=== PATIENT | female | born 1960 | race African-American/Black ===

== ENCOUNTER 2017-04-24 09:45 | Emergency (ER) | payer OTHER ==
[2017-04-24 10:03] VITALS: BP 138/72; PULSE 58; TEMP 97.4; BMI 28.5
[2017-04-24] MEDS ORDERED: KETOROLAC TROMETHAMINE 60 MG/2 ML VIAL IM ONE (10:10)
[2017-04-24] MEDS ORDERED: KETOROLAC TROMETHAMINE 60 MG/2 ML VIAL ONE (10:15)
[2017-04-24 10:32] LABS: URINE APPEARANCE CLOUDY; URINE BILIRUBIN NEGATIVE (NEGATIVE); URINE BLOOD 1+ (NEGATIVE); URINE COLOR LTYELLOW; URINE GLUCOSE (UA) NEGATIVE (NEGATIVE); URINE KETONE NEGATIVE (NEGATIVE); URINE LEUK ESTERASE NEGATIVE (NEGATIVE); URINE NITRITE NEGATIVE (NEGATIVE); URINE PROTEIN NEGATIVE (NEGATIVE); URINE UROBILINOGEN NEGATIVE mg/dL (0.2-1.0)
[2017-04-24 10:44] LABS: URINE BACTERIA MODERATE /hpf (NONE SEEN); URINE MUCUS RARE
--- NOTE | 2017-04-24 11:13 | PDOC ---
History of Present Illness - General Chief Complaint: Pain, Acute Stated Complaint: ABD PAIN Time Seen by Provider: 04/24/17 10:09 History Source: Patient Exam Limitations: No Limitations - History of Present Illness Initial Comments: 04/24/17 11:03 The patient is a 56F with a PMH of fibroymalgia, depression, who presents with acute onset R flank pain. The pain started at 0400 this morning and has worsened until the patient's presentation. She has vomited and feels slightly nauseous. She denies any other pain including abdominal pain, CP, hematuria. She denies any hx of kidney stones. She cannot provide more history 2/2 pain. Past History - Past Medical History Allergies/Adverse Reactions: Allergies Allergy/AdvReac Type Severity Reaction Status Date / Time Iodine and Iodide Containing Allergy Verified 04/24/17 10:03 Produc Home Medications: Ambulatory Orders Oxycodone HCl/Acetaminophen [Percocet 5-325 mg Tablet] 1 tab PO Q6H PRN #12 tablet MDD 4 tabs 04/24/17 COPD: No - Suicide/Smoking/Psychosocial Hx Smoking History: Never smoked Have you smoked in the past 12 months: No Information on smoking cessation initiated: No Hx Alcohol Use: No Drug/Substance Use Hx: No Substance Use Type: None Review of Systems - Review of Systems Able to Perform ROS?: Yes Comments:: 04/24/17 13:08 GENERAL/CONSTITUTIONAL: No fever or chills. No weakness. HEAD, EYES, EARS, NOSE AND THROAT: No change in vision. No ear pain or discharge. No sore throat. CARDIOVASCULAR: No chest pain, palpitations, or lightheadedness. RESPIRATORY: No cough, wheezing, shortness of breath, or hemoptysis. GASTROINTESTINAL: Positive for nausea and vomiting. No diarrhea, constipation, or abdominal pain. GENITOURINARY: Positive for R flank pain. No dysuria, frequency, hematuria, or change in urination. MUSCULOSKELETAL: No joint or muscle swelling or pain. No neck or back pain. SKIN: No rash or lesions. NEUROLOGIC: No headache, numbness, tingling, weakness, loss of consciousness, or change in strength/sensation. ENDOCRINE: No increased thirst. No abnormal weight change. HEMATOLOGIC/LYMPHATIC: No anemia, easy bleeding, or history of blood clots. ALLERGIC/IMMUNOLOGIC: No hives or skin allergy. Is the patient limited [place] proficient: No *Physical Exam - Vital Signs Last Vital Signs Temp Pulse Resp BP Pulse Ox 97.4 F L 58 L 20 138/72 99 04/24/17 10:02 04/24/17 10:02 04/24/17 10:02 04/24/17 10:02 04/24/17 10:02 - Physical Exam Comments: 04/24/17 13:09 GENERAL: Well developed, well nourished. Writhing, in moderate distress. Awake and alert. HEENT: Normocephalic, atraumatic. Hearing grossly normal. Moist mucous membranes. PERRLA, EOMI. No conjunctival pallor. Sclera are non-icteric. NECK: Supple. Full ROM. No JVD. CARDIOVASCULAR: Regular rate and rhythm. No murmurs, rubs, or gallops. PULMONARY: No evidence of respiratory distress. Lungs clear to auscultation bilaterally. No wheezing, rales or rhonchi. ABDOMINAL: Soft. Non-tender. Non-distended. No rebound or guarding. GENITOURINARY: No CVA tenderness bilaterally. MUSCULOSKELETAL: Normal range of motion at all joints. No bony deformities or tenderness. EXTREMITIES: No cyanosis. No clubbing. No edema. No calf tenderness. SKIN: Warm and dry. Normal capillary refill. No rashes. No jaundice. NEUROLOGICAL: Alert, awake, appropriate. Cranial nerves 2-12 intact. Normal speech. Gait is normal without ataxia. PSYCHIATRIC: Cooperative. Good eye contact. Appropriate mood and affect. ED Treatment Course - LABORATORY CBC & Chemistry Diagram: 04/24/17 11:59 04/24/17 11:59 - ADDITIONAL ORDERS Additional order review: Laboratory Results 04/24/17 10:14 Urine Color Ltyellow Urine Appearance Cloudy Urine pH 7.0 Ur Specific [place] 1.015 Urine Protein Negative Urine Glucose (UA) Negative Urine Ketones Negative Urine Blood 1+ H Urine Nitrite Negative Urine Bilirubin Negative Urine Urobilinogen Negative Ur Leukocyte Esterase Negative Urine WBC (Auto) None Urine RBC (Auto) 25 Urine Bacteria Moderate Urine Mucus Rare - RADIOLOGY Radiology Studies Ordered: Category Date Time Status ABDOMEN & PELVIS CT W/O CONTR [CT] Stat CT Scan 04/24/17 10:34 Taken - Medications Given in the ED: ED Medications Discontinued Medications Generic Name Dose Route Start Last Admin Trade Name Freq PRN Reason Stop Dose Admin Ketorolac Tromethamine 60 mg 04/24/17 10:10 04/24/17 10:05 Toradol Injection - IM 04/24/17 10:11 60 mg ONCE ONE Administration Medical Decision Making - Medical Decision Making 04/24/17 11:37 The patient is a 56F who presented with acute onset R flank pain. Toradol controlled the pain. CT showed 4mm stone. Will refer to urology. Will prescribe naproxen and percocet. *DC/Admit/Observation/Transfer Diagnosis at time of Disposition: Nephrolithiasis - Discharge Dispostion Disposition: HOME Condition at time of disposition: Stable Admit: No - Prescriptions Prescriptions: Oxycodone HCl/Acetaminophen [Percocet 5-325 mg Tablet] 1 tab PO Q6H PRN #12 tablet MDD 4 tabs PRN Reason: Pain - Referrals Referrals: Manuel Sethi MD [Staff Physician] - - Patient Instructions Printed Discharge Instructions: Kidney Stones -- Adult Additional Instructions: Please return to the ER if symptoms persist, worsen, or new symptoms arise. Please follow up with your primary care physician in 2-3 days. Please follow up with Dr. Sethi, urology, in 5-7 days. Please return to the ER if you are still experiencing pain in 5-7 days. Try to watch your urine to see if you passed a stone. If you did, save it for your appointment with Dr. Sethi. Please return to the ER if you have any signs or symptoms of chest pain, shortness of breath, uncontrollable fever, chills, nausea, vomiting, numbness, tingling, or weakness in any part of your body, changes in vision, or slurred speech. - Post Discharge Activity
[2017-04-24] MEDS ORDERED: SODIUM CHLORIDE 1,000 ML IV STA (11:44)
--- NOTE | 2017-04-24 11:50 | PDOC ---
Attending Attestation - Resident Resident Name: Gabriel Agustin - ED Attending Attestation I have performed the following: I have examined & evaluated the patient, The case was reviewed & discussed with the resident, I agree w/resident's findings & plan, Exceptions are as noted - HPI HPI: 04/24/17 11:46 "The patient is a 56 year old female with a significant PMH of fibromyalgia who presents to the emergency department with flank pain with associated nausea and vomiting that began at approximately 4AM this morning. The patient states the flank pain is described as sharp, sudden onset, and localized on the right radiating anteriorly. The patient is complaining of multiple episodes of non- bloody, non-bilious vomit today. The patient denies any history of kidney stones. The patient denies chest pain, shortness of breath, headache and dizziness. Denies fever, chills, diarrhea and constipation. Denies dysuria, frequency, urgency and hematuria. Allergies: NKA Past surgical history: None reported Social history: No reported alcohol, cigarette or drug use. " - Physicial Exam PE: 04/24/17 11:47 "GENERAL: Awake, alert, and fully oriented, in no acute distress HEAD: No signs of trauma EYES: PERRLA, EOMI, sclera anicteric, conjunctiva clear ENT: Auricles normal inspection, hearing grossly normal, nares patent, oropharynx clear without exudates. Moist mucosa NECK: Nontender, no stepoffs, Normal ROM, supple, no lymphadenopathy, JVD, or masses LUNGS: Breath sounds equal, clear to auscultation bilaterally. No wheezes, and no crackles HEART: Regular rate and rhythm, normal S1 and S2, no murmurs, rubs or gallops ABDOMEN: Soft, nontender, normoactive bowel sounds. No guarding, no rebound. No masses EXTREMITIES: Normal range of motion, no edema. No clubbing or cyanosis. No cords, erythema, or tenderness NEUROLOGICAL: Cranial nerves II through XII intact. 5/5 strength and sensation in all extremities, Normal speech, normal gait SKIN: Warm, Dry, normal turgor, no rashes or lesions noted. " - Medical Decision Making 04/24/17 11:47 56 F with R flank radiating to groin. - CT shows 4mm stone - UA with blood, no evidence of infection - Will check CBC/CMP - Pain at this time well controlled with toradol
[2017-04-24 12:11] LABS: BASO % 0.1 % (0-2.0); EOS % 0.2 % (0-4.5); HEMATOCRIT 41.4 % (32.4-45.2); HEMOGLOBIN 13.5 GM/dL (10.7-15.3); LYMPH % 5.5 % (8-40); MCH 30.6 pg (25.7-33.7); MCHC 32.6 g/dl (32.0-36.0); MEAN CELL VOLUME 93.8 fl (80-96); MEAN PLT VOLUME 9.1 fl (7.5-11.1); MONO % 3.9 % (3.8-10.2); NEUT % 90.3 % (42.8-82.8); PLATELET COUNT 170 K/MM3 (134-434); RBC 4.41 M/mm3 (3.60-5.2); RDW 12.8 % (11.6-15.6); WHITE BLOOD COUNT 9.4 K/mm3 (4.0-10.0)
[2017-04-24 12:28] LABS: ALBUMIN 4.2 g/dl (3.4-5.0); ANION GAP 7 (8-16); BILIRUBIN,TOTAL 0.2 mg/dL (0.2-1.0); BLOOD UREA NITROGEN 10 mg/dL (7-18); CALCIUM 9.3 mg/dL (8.5-10.1); CHLORIDE 105 mmol/L (98-107); CO2 31 mmol/L (21-32); CREATININE 0.9 mg/dL (0.55-1.02); GLUCOSE,RANDOM 108 mg/dL (74-106); SGPT/ALT 27 U/L (12-78); SODIUM 143 mmol/L (136-145); TOT PROT 7.5 g/dl (6.4-8.2)
[2017-04-24 12:29] LABS: ALK PHOS 65 U/L (45-117)
[2017-04-24 12:31] LABS: POTASSIUM 4.7 mmol/L (3.5-5.1); SGOT/AST 20 U/L (15-37)
== END 2017-04-24 13:21 | disposition home or self-care (01) ==
LOC: JER 09:45
PROC: 3E0337Z Introduction of Electrolytic and Water Balance Substance into Peripheral Vein, Percutaneous Approach (ICD-10-PCS; principal; 2017-04-24)
PROC: 3E0233Z Introduction of Anti-inflammatory into Muscle, Percutaneous Approach (ICD-10-PCS; 2017-04-24)
DX: N13.2 Hydronephrosis with renal and ureteral calculous obstruction (principal)
CPT/HCPCS: 36415; 74176-TC; 80053; 81003; 81015; 85025; 87086; 99282-25

== ENCOUNTER 2019-11-22 18:33 | Inpatient (IN) | payer OTHER ==
[2019-11-22] MEDS ORDERED: ACETAMINOPHEN 1000 MG/100 ML VIAL (NON FORMULARY) IVPB ONE (20:13)
[2019-11-22] MEDS ORDERED: morphine CARPU-JECT 4 MG/1 ML DISP.SYRIN IVPUSH ONE (20:13)
--- NOTE | 2019-11-22 20:24 | PDOC ---
History of Present Illness - General Chief Complaint: Pain, Acute Stated Complaint: PAIN Time Seen by Provider: 11/22/19 19:43 - History of Present Illness Initial Comments: 11/22/19 20:16 59yo female with PMH of cervical spine stenosis and arthropathy presents with acute on chronic neck pain and difficulty ambulating. Reports increased pain for the past month. Saw a neurosurgeon who told her to get an MRI and see a neurologist first, which she is scheduled for this Sunday. She was in so much pain that she could not wait. Complains of sharp burning neck pain radiating down right arm with right arm weakness. Not relieved by ibuprofen, which she last took 800mg of two hours ago. Also reports knee pain and difficulty with ambulation. Reports falling on her butt two days prior without headstrike or LOC. Denies urinary/fecal incontinence/retention, f/c, saddle anesthesia. Had a recent knee MRI which showed OA but not acute process. PMH: as above, HLD PSH: hysterectomy Meds: statin, ibuprofen, gabapentin Allergies: iodine ROS GENERAL/CONSTITUTIONAL: No fever or chills. HEAD, EYES, EARS, NOSE AND THROAT: No change in vision. No ear pain or discharge. No sore throat. CARDIOVASCULAR: No chest pain or shortness of breath RESPIRATORY: No cough, wheezing, or hemoptysis. GASTROINTESTINAL: No nausea, vomiting, diarrhea or constipation. GENITOURINARY: No dysuria, frequency, or change in urination. MUSCULOSKELETAL: neck and knee pain. SKIN: No rash NEUROLOGIC: No headache, vertigo, loss of consciousness. difficulty walking ENDOCRINE: No increased thirst. No abnormal weight change HEMATOLOGIC/LYMPHATIC: No anemia, easy bleeding, or history of blood clots. ALLERGIC/IMMUNOLOGIC: No hives or skin allergy. PE GENERAL: Awake, alert, and fully oriented, in pain HEAD: No signs of trauma, normocephalic, atraumatic EYES: PERRLA, EOMI, sclera anicteric, conjunctiva clear ENT: Auricles normal inspection, hearing grossly normal, nares patent, oropharynx clear without exudates. Moist mucosa NECK: Normal ROM, supple, no lymphadenopathy, JVD, or masses LUNGS: No distress, speaks full sentences, clear to auscultation bilaterally HEART: Regular rate and rhythm, normal S1 and S2, no murmurs, rubs or gallops, peripheral pulses normal and equal bilaterally. ABDOMEN: Soft, nontender, normoactive bowel sounds. No guarding, no rebound. No masses EXTREMITIES : Normal inspection, no edema. No clubbing or cyanosis. NEUROLOGICAL: 3/5 strength in right arm and left leg. ROM in right arm limited by pain. SKIN: Warm, Dry, normal turgor, no rashes or lesions noted BACK: paraspinal and midline tenderness in cervical and lumbar spine MDM: 59yo female with PMH of cervical spine stenosis and arthropathy presents with acute on chronic neck pain and difficulty ambulating. Tender on c-spine and lumbar spine with reduced strength in right arm and left leg, even after pain medication. DDx includes spinal stenosis, arthropathy, spinal fracture. -CT cervical and lumbar spine -toradol, percocet, lidoderm patch, gabapentin 11/22/19 23:25 CT c-spine FINDINGS: There is no prevertebral soft tissue swelling. There is no evidence of acute fracture or subluxation. There are no destructive lesions. There is multilevel degenerative change with small anterior and posterior osteophytes. There is mild disc space loss at C3-C4 moderate loss at C4-C5 and moderate significant loss at C5-C6. There is calcification of the posterior longitudinal ligament at C5-C6. There is multilevel uncal hypertrophy. There is moderate right neural foramina narrowing at C2-C3, mild narrowing on the right at C3-C4 moderate on the left. There is significant bilateral neural foramina narrowing at C4-C5 C5-C6 and to a mild extent on the right at C7-T1. Straightening of the cervical spine maybe secondary to muscle spasm. IMPRESSION: No evidence of acute fracture or subluxation.Straightening of the cervical spine maybe secondary to muscle spasm.If there are focal radicular findings, MRI would be recommended. CT lumbar spine FINDINGS: There is no evidence of lumbar spine fracture or subluxation. No destructive lesions are seen. The lumbar vertebral bodies are well aligned. There is mild degenerative change with small anterior osteophytes. There is mild to moderate disc space loss at L2-L3 and at L3-L4. There is vacuum disc at L3-L4. Mild disc bulge noted at L3-L4. IMPRESSION: No evidence of lumbar spine acute fracture or subluxation.If there are focal radicular findings, MRI would be recommended --- Pain improved with medication. There are radicular findings in the right arm, so will admit for MRI 11/23/19 02:26 Past History - Medical History Allergies/Adverse Reactions: Allergies Allergy/AdvReac Type Severity Reaction Status Date / Time Iodine and Iodide Containing Allergy Verified 11/22/19 18:41 Produc Home Medications: Ambulatory Orders Oxycodone HCl/Acetaminophen [Percocet 5-325 mg Tablet] 1 tab PO Q6H PRN #12 tablet MDD 4 tabs 04/24/17 COPD: No - Psycho-Social/Smoking History Smoking History: Never smoked Have you smoked in the past 12 months: No - Substance Abuse Hx (Audit-C & DAST Scrn) How often the patient has a drink containing alcohol: Never Score: In Men: 4 or > Positive; In Women: 3 or > Positive: 0 Screen Result (Pos requires Nsg. Audit-10AR): Negative In the last yr the pt used illegal drug/Rx for NonMed reason: No Score: Yes response is considered Positive: 0 Screen Result (Positive result requires Nsg. DAST-10): Negative *Physical Exam - Vital Signs Last Vital Signs Temp Pulse Resp BP Pulse Ox 98.6 F 66 18 110/44 L 100 11/22/19 18:41 11/22/19 18:41 11/22/19 18:41 11/22/19 18:41 11/22/19 18:41 ED Treatment Course - LABORATORY CBC & Chemistry Diagram: 11/23/19 00:50 11/23/19 00:50 - RADIOLOGY Radiology Studies Ordered: Category Date Time Status CERVICAL SPINE CT W/O CONTR [CT] Stat CT Scan 11/22/19 20:[address] W/O CONTRAST [CT] Stat CT Scan 11/22/19 20:[address] W/O CONTRAST [CT] Stat CT Scan 11/22/19 20:14 Ordered Discharge - Discharge Information Problems reviewed: Yes Clinical Impression/Diagnosis: Cervical stenosis of spinal canal - Admission Yes - Follow up/Referral - Patient Discharge Instructions - Post Discharge Activity
[2019-11-22] MEDS ORDERED: GABAPENTIN 100 MG CAPSULE PO ONE (20:25)
[2019-11-22] MEDS ORDERED: KETOROLAC TROMETHAMINE 30 MG/1 ML VIAL IVPUSH ONE (20:25)
[2019-11-22] MEDS ORDERED: LIDOCAINE 5% TOPICAL PATCH TP ONE (20:25)
[2019-11-22] MEDS ORDERED: SODIUM CHLORIDE 0.9% 500 ML INFUS.BAG IV ONE (20:25)
[2019-11-22] MEDS ORDERED: GABAPENTIN 300 MG CAPSULE PO ONE (20:31)
[2019-11-22] MEDS ORDERED: GABAPENTIN 100 MG CAPSULE ONE ×2 (20:38→21:11)
[2019-11-22] MEDS ORDERED: LIDOCAINE 5% TOPICAL PATCH ONE (20:38)
--- NOTE | 2019-11-22 22:12 | PDOC ---
Documentation entered by Diana Doss SCRIBE, acting as scribe for Margaret Ragsdale MD. Margaret Ragsdale MD: This documentation has been prepared by the scribeRomario Ana, SCRIBE, under my direction and personally reviewed by me in its entirety. I confirm that the documentation accurately reflects all work, treatment, procedures, and medical decision making performed by me. Attending Attestation - Resident Resident Name: LunaMario - ED Attending Attestation I have performed the following: I have examined & evaluated the patient, The case was reviewed & discussed with the resident, I agree w/resident's findings & plan, Exceptions are as noted - HPI HPI: 11/22/19 21:25 Patient is a year old female with a significant past medical history of cervical spine stenosis and arthropathy, who presents to the ED with neck pain, difficulty walking, and pain x1 month. Patient describes her neck pain as a "burning sensation" which radiates down to her right arm causing weakness and her knee pain causing her to have unsteady gait. Patient disclosed she attempted to self medicate with ibuprofen prior to ED arrival but experienced no relief. Patient reports falling 2 days ago. Patient said she is supposed to get an MRI and see neurologist next week. Patient denies: any head trauma, LOC, fever, chills, any urinary issues, any changes in bowel movements, or any other related symptoms. Allergies: see nurse's note - Physicial Exam PE: 11/22/19 22:09 General: awake, alert, fully oriented, in no acute distress, well developed, well nourished Head: normocephalic, atraumatic Eyes: PERRL, EOMI, anicteric sclera, conjunctiva clear ENT: Auricles normal inspection, hearing grossly normal, oropharynx clear without exudates, no nasal congestion, dry mucous membranes Neck: supple, normal ROM, no LAD, JVD or masses Lung: equal breath sounds b/l, CTA b/l, no crackles, wheezes; no distress, speaks full sentences Heart: RRR, normal S1, S2, no murmurs appreciated Abdomen: soft, non tender, normoactive bowel sounds, no guarding, rebound, masses Extremities: moderate tenderness over all extremities, DP/PT pulses 2+ and symmetric Neuro: Cranial nerves: Cranial nerves II through XII are intact; refelxes 2+ and symmetric Motor: The upper extremities are 5/5 in all muscle groups. The lower extremities are 5/5 in all muscle groups. No pronator drift. Sensation: Sensation is intact to light touch throughout. Gait: Normal Skin: warm, dry, no rashes or lesions noted, normal skin turgor Pt has muscle spasm and back pain; she complains of pain running down bilateral arms 11/22/19 23:13 Pt will be admitted for MRI - Medical Decision Making 11/22/19 22:11 Pt had analgesics: toradol; percocet; lidoderm patch and her usual nightly neurontin 600mg She says that she feels great. We are awaiting CT L and C spine results. Once back, if normal or non-threatening results, she can go home. 11/22/19 22:56 CT scan still pedning 11/22/19 23:12 Patient Name: RAMON JOY THIS IS A PRELIMINARY REPORT DATE OF SERVICE: 2019-11-22 21:26:40 IMAGES: [id number] EXAM: CERVICAL SPINE CT W/O CONTR HISTORY: Tenderness COMPARISON: None. TECHNIQUE: Axial CT images were acquired from the skull base to the upper thoracic spine. Sagittal and coronal reformations were then acquired. FINDINGS: There is no prevertebral soft tissue swelling. There is no evidence of acute fracture or subluxation. There are no destructive lesions. There is multilevel degenerative change with small anterior and posterior osteophytes. There is mild disc space loss at C3-C4 moderate loss at C4-C5 and moderate significant loss at C5-C6. There is calcification of the posterior longitudinal ligament at C5-C6. There is multilevel uncal hypertrophy. There is moderate right neural foramina narrowing at C2-C3, mild narrowing on the right at C3-C4 moderate on the left. There is significant bilateral neural foramina narrowing at C4-C5 C5-C6 and to a mild extent on the right at C7-T1. Straightening of the cervical spine maybe secondary to muscle spasm. IMPRESSION: No evidence of acute fracture or subluxation.Straightening of the cervical spine maybe secondary to muscle spasm.If there are focal radicular findings, MRI would be recommended. Patient Name: RAMON JOY THIS IS A PRELIMINARY REPORT DATE OF SERVICE: 2019-11-22 21:34:07 IMAGES: [id number] EXAM: LUMBAR SPINE CT W/O CONTRAST HISTORY: Tenderness COMPARISON: None. TECHNIQUE: Axial CT images were acquired from the lower thoracic spine to the sacrum. Sagittal and coronal reformations were then acquired. One or more of the following dose reduction techniques were used: Automated exposure control adjustment of the mA and/or kV according to the patient size, use of iterative reconstructive technique. FINDINGS: There is no evidence of lumbar spine fracture or subluxation. No destructive lesions are seen. The lumbar vertebral bodies are well aligned. There is mild degenerative change with small anterior osteophytes. There is mild to moderate disc space loss at L2-L3 and at L3-L4. There is vacuum disc at L3-L4. Mild disc bulge noted at L3-L4. IMPRESSION: No evidence of lumbar spine acute fracture or subluxation.If there are focal radicular findings, MRI would be recommended. 11/22/19 23:13 Pt will be admitted for MRI Discharge - Discharge Information Problems reviewed: Yes Clinical Impression/Diagnosis: Cervical stenosis of spinal canal - Follow up/Referral Referrals: Jose Rafael Meade [Primary Care Provider] - - Patient Discharge Instructions - Post Discharge Activity
[2019-11-23 01:13] LABS: HEMATOCRIT 43.3 % (32.4-45.2); HEMOGLOBIN 14.5 GM/dL (10.7-15.3); MCH 32.2 pg (25.7-33.7); MCHC 33.5 g/dl (32.0-36.0); MEAN PLT VOLUME 10.3 fl (7.5-11.1); PLATELET COUNT 145 K/MM3 (134-434); RBC 4.52 M/mm3 (3.60-5.2); RDW 12.6 % (11.6-15.6); WHITE BLOOD COUNT 4.1 K/mm3 (4.0-10.0)
[2019-11-23 01:21] LABS: INR 1.06 (0.83-1.09); PROTHROMBIN TIME (PATIENT) 12.5 SEC (9.7-13.0)
--- NOTE | 2019-11-23 01:47 | HP ---
CHIEF COMPLAINT: PCP: Dr. Meade HISTORY OF PRESENT ILLNESS: 59yoF with history of hyperlipidemia who presents with worsening paresthesias of the right arm and now with generalized weakness and paresthesias in the lower extremities. 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 She saw a neurosurgeon last year who recommended surgery but due to COVID this was never scheduled. Over the past month the pain has worsened and has more frequent paresthesias in her fingertips. Also states her knees have been "giving out" and feel numb so she has fallen twice. Denies saddle anesthesia, urinary retention, or incontinence. She takes gabapentin wtih some effect but avoids Tylenol, NSAIDs, or muscle relaxants because they have not been helpful in the past. She saw a different neurosurgeon in [place] last week who ordered an MRI for her but she has not scheduled it yet. She has an appointment with a neurologist next Sunday. Her daughter convinced her to present to the ED for evaluation. ER course was notable for: (1) CT C-spine (prelim read): Cervical central spinal canal stenosis. Neural foramina narrowing C3-C6. (2) CT L-spine (prelim read): Mild to moderate disc scpace loss at L2-3 and L3- 4. Vaccum disc at L3-4. Mild disc bulge noted at L3-4. (3) Pain improved s/p Toradol, Percocet, lidocaine patch, and gabapentin in ED Recent Travel: Denies PAST MEDICAL HISTORY: HLD Uterine fibroids s/p hysterectomy PAST SURGICAL HISTORY: Hysterectomy Social History: Smoking: Denies Alcohol: Denies Allergies Iodine and Iodide Containing Produc Allergy (Verified 11/22/19 18:41) HOME MEDICATIONS: Simvastatin 40mg qhs gabapentin 600mg qhs REVIEW OF SYSTEMS Negative except as noted in HPI PHYSICAL EXAMINATION Vital Signs - 24 hr 11/22/19 18:41 Temperature 98.6 F Pulse Rate 66 Respiratory 18 Rate Blood Pressure 110/44 L O2 Sat by Pulse 100 Oximetry (%) GENERAL: Awake, alert, and fully oriented, in no acute distress. HEAD: Normal with no signs of trauma. EYES: Pupils equal, round and reactive to light, extraocular movements intact, sclera anicteric, conjunctiva clear. No lid lag. EARS, NOSE, THROAT: Ears normal, nares patent, oropharynx clear without exudates. Moist mucous membranes. Edentulous, dentures in place NECK: Tender to palpation over posterior neck, upper back without step offs, bruising, or swelling LUNGS: Breath sounds equal, clear to auscultation bilaterally. No accessory muscle use. HEART: Regular rate and rhythm, normal S1 and S2 without murmur, rub or gallop. ABDOMEN: Soft, nontender, not distended, normoactive bowel sounds MUSCULOSKELETAL: No swelling in joints, no peripheral edema. BLE strength 3/5, limited due to pain. BUE strength 4/5, also limited by pain. Sensation grossly intact to light touch. NEUROLOGICAL: Cranial nerves II-XII intact. Normal speech. PSYCHIATRIC: Cooperative. Good eye contact. Appropriate mood and affect. SKIN: Warm, dry, normal turgor, no rashes or lesions noted, normal capillary refill. Laboratory Results - last 24 hr 11/22/19 11/23/19 11/23/19 22:06 00:50 00:50 WBC 4.1 RBC 4.52 Hgb 14.5 Hct 43.3 MCV 96.0 MCH 32.2 MCHC 33.5 RDW 12.6 Plt Count 145 MPV 10.3 D PT with INR 12.50 INR 1.06 POC Glucometer 80 ASSESSMENT/PLAN: 59yoF with history of hyperlipidemia who presents with worsening paresthesias of the right arm and now with generalized weakness and worsening paresthesias now affecting her lower extremities as well. Cervical radiculopathy Reports known history of nerve impingement, was lost to f/u with neurosurgery and did not schedule previously recommended surgery Subacute worsening of symptoms x1 month, now affecting lower extremities as well resulting in falls - continue gabapentin 600qhs - continue toradol, Tylenol, lidocaine patch - neurosurgery consult in AM - MRI C- and L-spine Chronic, stable HLD: continue simvastatin, daily aspirin DVT ppx: Lovenox subq Family Medical History Family History: As Documented Family Hx Cancer: Mother (gallbladder cancer, 2018) Visit type - Emergency Visit Emergency Visit: Yes ED Registration Date: 11/22/19 Care time: The patient presented to the Emergency Department on the above date and was hospitalized for further evaluation of their emergent condition. - New Patient This patient is new to me today: Yes Date on this admission: 11/23/19 - Critical Care Critical Care patient: No
[2019-11-23 01:54] LABS: BLOOD UREA NITROGEN 7.6 mg/dL (7-18); CALCIUM 9.1 mg/dL (8.5-10.1); CREATININE 0.8 mg/dL (0.55-1.3); MAGNESIUM 2.3 mg/dL (1.8-2.4); PHOSPHOROUS 3.9 mg/dL (2.5-4.9); POTASSIUM 5.8 mmol/L (3.5-5.1)
[2019-11-23] MEDS ORDERED: ACETAMINOPHEN 325 MG TABLET (FP) PO PRN (02:12)
[2019-11-23] MEDS ORDERED: KETOROLAC TROMETHAMINE 30 MG/1 ML VIAL ONE ×2 (03:58→11:09)
[2019-11-23] MEDS: KETOROLAC TROMETHAMINE 30 MG/1 ML VIAL IVPUSH PRN ×2 (04:07→12:06)
[2019-11-23 07:12] LABS: HEMATOCRIT 38.3 % (32.4-45.2); MCH 31.9 pg (25.7-33.7); MEAN CELL VOLUME 93.7 fl (80-96); MEAN PLT VOLUME 9.3 fl (7.5-11.1); PLATELET COUNT 126 K/MM3 (134-434); RBC 4.09 M/mm3 (3.60-5.2); RDW 12.3 % (11.6-15.6); WHITE BLOOD COUNT 4.2 K/mm3 (4.0-10.0)
[2019-11-23 07:17] LABS: INR 1.1 (0.83-1.09)
[2019-11-23 07:35] LABS: BLOOD UREA NITROGEN 8.5 mg/dL (7-18); CALCIUM 8.4 mg/dL (8.5-10.1); CREATININE 0.9 mg/dL (0.55-1.3); POTASSIUM 3.8 mmol/L (3.5-5.1)
[2019-11-23] MEDS: LIDOCAINE PATCH REMOVAL MC SCH ×2 (09:30→21:56)
--- NOTE | 2019-11-23 15:52 | EKG ---
Test Reason : Blood Pressure : / mmHG Vent. Rate : 049 BPM Atrial Rate : 049 BPM P-R Int : 156 ms QRS Dur : 102 ms QT Int : 442 ms P-R-T Axes : 039 -20 029 degrees QTc Int : 399 ms SINUS BRADYCARDIA SEPTAL INFARCT (CITED ON OR BEFORE 16-JUN-2019) ABNORMAL ECG WHEN COMPARED WITH ECG OF 16-JUN-2019 19:16, QUESTIONABLE CHANGE IN INITIAL FORCES OF SEPTAL LEADS Confirmed by Herrera Deleon ([id number]) on 11/23/2019 3:52:17 PM Referred By: Confirmed By:Herrera Deleon
[2019-11-23 16:35] VITALS: BMI 27.4
--- NOTE | 2019-11-24 00:05 | CONSULT ---
Consult - text type - Consultation Consultation Note: NEUROSURGERY CONSULTATION Patient seen and examined Full note to follow. Patient with progressive Cervical spondylotic myelopathy and will require surgery, likely on Sunday if medically clear
[2019-11-24 08:40] LABS: EOS % 3.3 % (0-4.5); HEMATOCRIT 38.9 % (32.4-45.2); HEMOGLOBIN 13.1 GM/dL (10.7-15.3); LYMPH % 38.1 % (8-40); MCH 31.4 pg (25.7-33.7); MCHC 33.7 g/dl (32.0-36.0); MEAN CELL VOLUME 93.3 fl (80-96); MEAN PLT VOLUME 9.6 fl (7.5-11.1); MONO % 9.3 % (3.8-10.2); NEUT % 48.3 % (42.8-82.8); PLATELET COUNT 131 K/MM3 (134-434); RBC 4.17 M/mm3 (3.60-5.2); RDW 12.5 % (11.6-15.6); WHITE BLOOD COUNT 4.1 K/mm3 (4.0-10.0)
[2019-11-24 09:03] LABS: ALBUMIN 3.5 g/dl (3.4-5.0); BLOOD UREA NITROGEN 15.7 mg/dL (7-18); CALCIUM 9.3 mg/dL (8.5-10.1); CREATININE 0.8 mg/dL (0.55-1.3); POTASSIUM 3.9 mmol/L (3.5-5.1); TOT PROT 6.5 g/dl (6.4-8.2)
--- NOTE | 2019-11-24 12:49 | PN ---
Physical Exam: SUBJECTIVE: Patient seen and examined. Pt. endorses progressive weakness of RUE. Pt. states there is increased pain when turning her head to the left. Pt. for OR in AM once cleared by medicine and cardiology. Pt. denies any groin [id number] or any problems passing urine or stool. Pt. denies any heart problems in the past and has no difficulties climbing stairs or walking on a flat surface. EKG noted to be bradycardic OBJECTIVE: Vital Signs Period Temp Pulse Resp BP Sys/Mandujano Pulse Ox Last 24 Hr 98.2 F-98.5 F 44-57 16-20 116-130/50-73 97-99 GENERAL: The patient is awake, alert, and fully oriented, in mild distress 2/2 pain and anxiety. HEAD: Normal with no signs of trauma. EYES: Sclera anicteric, conjunctiva clear. No ptosis. ENT: moist mucous membranes. NECK: Trachea midline, full range of motion, supple. Slight tenderness w/ movement on right LUNGS: Breath sounds equal, clear to auscultation bilaterally, no wheezes, no crackles, no accessory muscle use. HEART: Regular rate and Irregular rhythm, S1, S2 without murmur ABDOMEN: Soft, nontender, nondistended, normoactive bowel sounds, no guarding, no rebound. Spinal tenderness in cervical region EXTREMITIES: 2+ dorsal pedal pulses, warm, no calf tenderness well-perfused, no edema. 5/5 LE strength throughout NEUROLOGICAL: Normal speech, gait not observed. SEnsation grossly in tact throughout. PSYCH: Normal mood, normal affect. SKIN: Warm, dry, normal turgor, no rashes or lesions noted Laboratory Results - last 24 hr 11/23/19 11/24/19 11/24/19 00:25 07:18 07:18 WBC 4.1 RBC 4.17 Hgb 13.1 Hct 38.9 MCV 93.3 MCH 31.4 MCHC 33.7 RDW 12.5 Plt Count 131 L MPV 9.6 Absolute Neuts (auto) 2.0 Neutrophils % 48.3 D Lymphocytes % 38.1 D Monocytes % 9.3 D Eosinophils % 3.3 D Basophils % 1.0 D Nucleated RBC % 0 Sodium 142 Potassium 3.9 Chloride 108 H Carbon Dioxide 27 Anion Gap 6 L BUN 15.7 Creatinine 0.8 Est GFR (CKD-EPI)AfAm 92.87 Est GFR (CKD-EPI)NonAf 80.13 Random Glucose 78 Calcium 9.3 Total Bilirubin 1.0 AST 16 ALT 21 Alkaline Phosphatase 48 Total Protein 6.5 Albumin 3.5 COVID-19 (RAY) Not detected Blood Type Antibody Screen 11/24/19 07:18 WBC RBC Hgb Hct MCV MCH MCHC RDW Plt Count MPV Absolute Neuts (auto) Neutrophils % Lymphocytes % Monocytes % Eosinophils % Basophils % Nucleated RBC % Sodium Potassium Chloride Carbon Dioxide Anion Gap BUN Creatinine Est GFR (CKD-EPI)AfAm Est GFR (CKD-EPI)NonAf Random Glucose Calcium Total Bilirubin AST ALT Alkaline Phosphatase Total Protein Albumin COVID-19 (RAY) Blood Type B POSITIVE Antibody Screen Negative Active Medications Generic Name Dose Route Start Last Admin Trade Name Freq PRN Reason Stop Dose Admin Acetaminophen 650 mg 11/23/19 02:12 11/24/19 06:39 Tylenol - PO 650 mg Q4H PRN Administration PAIN LEVEL 1-5 Ketorolac Tromethamine 30 mg 11/23/19 02:12 11/23/19 12:06 Toradol Injection - IVPUSH 11/28/19 02:11 30 mg Q6H PRN Administration PAIN LEVEL 4 - 6 Miscellaneous 1 each 11/22/19 22:00 11/23/19 21:56 Lidoderm Patch Removal MC 1 each DAILY@2200 [facility] Administration Non-Formulary Medication 40 mg 11/24/19 22:00 Simvastatin [Simvastatin] PO [facility] Non-Formulary Medication 600 mg 11/24/19 22:00 Gabapentin [Gabapentin] PO [facility] ASSESSMENT/PLAN: Pt. is a 59 y.o. F w/ PMHx. of HLD and Chronic back pain presents with worsening paresthesias of the right arm and now with generalized weakness and worsening paresthesias now affecting her lower extremities as well. #Radiculopathy Pt. states that she picked up a Pt. ~4 years ago who was falling and symptoms started. Pt. over the last year has delayed surgery because of family problems at home and then the COVID pandemic Neurosurgery consulted--> for the OR in AM pending medical and cardiac clearance Pt. denies any cardiac history or any problems on exertion MRI CSpine positive for large central disc herniation at C6-C7 with effacement of ventral thecal sac and contacting the spinal cord, moderate spinal canal stenosis, C3-C4 with moderate bilateral foraminal stenosis NPO after midnight c/w Toradol for pain, will add Morphine for break through pain c/w Lidoderm patch c/w Tylenol resumed Gabapentin cardiology consult appreciated for clearance prior to surgery (EKG noted to have bradycardia, evidence of old infarct?) #HLD c/w Simvastatin hold ASA #DVT Ppx. SCDs, holding ASA( Primary prevention) Visit type - Emergency Visit Emergency Visit: Yes ED Registration Date: 11/22/19 Care time: The patient presented to the Emergency Department on the above date and was hospitalized for further evaluation of their emergent condition. - New Patient This patient is new to me today: Yes Date on this admission: 11/24/19 - Critical Care Critical Care patient: No - Discharge Referral Referred to [facility] Med [facility].C[facility] No ATTENDING PHYSICIAN STATEMENT I saw and evaluated the patient. I reviewed the resident's note and discussed the case with the resident. I agree with the resident's findings and plan as documented. SUBJECTIVE: OBJECTIVE: ASSESSMENT AND PLAN:
--- NOTE | 2019-11-24 13:38 | PN ---
Teaching Attending Note Name of Resident: Michael Lizarraga ATTENDING PHYSICIAN STATEMENT I saw and evaluated the patient. I reviewed the resident's note and discussed the case with the resident. I agree with the resident's findings and plan as documented. SUBJECTIVE: Seen and examined at bedside. Patient reports pain is better controlled. Noted to have bradycardia based on vital signs. EKG ordered and cardiology consulted for preoperative cardiac clearance. OBJECTIVE Last Vital Signs Temp Pulse Resp BP Pulse Ox 98.5 F 44 L 20 121/58 L 99 11/24/19 06:38 11/24/19 06:38 11/24/19 09:00 11/24/19 06:38 11/24/19 09:00 PE: Per resident note Labs/Imaging: reviewed ASSESSMENT/PLAN 5-year-old female with history of hyperlipidemia, spinal stenosis presents with worsening paresthesias of the right arm and paresthesias in the lower extremities. 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 #Progressive cervical myelopathy Seen by neurosurgery. Plans for OR tomorrow pending clearance Patient will require cardiac clearance prior to the OR given bradycardia #Bradycardia EKG ordered Cardiology consulted for preoperative clearance in the setting of bradycardia
--- NOTE | 2019-11-24 15:01 | CON.CARD ---
Consult Consult Specialty:: Cardiology - History of Present Illness History of Present Illness: 59-year-old female with history of hyperlipidemia, spinal stenosis presents with worsening paresthesias of the right arm and paresthesias in the lower extremities. 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 - History Source History Provided By: Medical Record - Past Medical History ...: No - Alcohol/Substance Use Hx Alcohol Use: No - Smoking History Smoking history: Never smoked Have you smoked in the past 12 months: No Home Medications - Allergies Allergies/Adverse Reactions: Allergies Allergy/AdvReac Type Severity Reaction Status Date / Time Iodine and Iodide Containing Allergy Verified 11/22/19 18:41 Produc - Home Medications Home Medications: Ambulatory Orders Aspirin 81 mg PO DAILY 11/23/19 Gabapentin 600 mg PO HS 11/23/19 Ibuprofen 800 mg PO PRN PRN 11/23/19 Simvastatin 40 mg PO HS 11/23/19 Family Medical History Family Hx Cancer: Mother (gallbladder cancer, 2019) Review of Systems - Review of Systems Constitutional: reports: No Symptoms Eyes: reports: No Symptoms HENT: reports: No Symptoms Neck: reports: No Symptoms Cardiovascular: reports: No Symptoms Respiratory: reports: No Symptoms Gastrointestinal: reports: No Symptoms Genitourinary: reports: No Symptoms Breasts: reports: No Symptoms Reported Musculoskeletal: reports: No Symptoms Integumentary: reports: No Symptoms Neurological: reports: No Symptoms Endocrine: reports: No Symptoms Hematology/Lymphatic: reports: No Symptoms Psychiatric: reports: No Symptoms Vital Signs: Vital Signs Temperature 98.6 F 11/24/19 14:00 Pulse Rate 66 11/24/19 14:00 Respiratory Rate 20 11/24/19 14:00 Blood Pressure 115/74 11/24/19 14:00 O2 Sat by Pulse Oximetry (%) 98 11/24/19 14:00 Constitutional: Yes: Well Nourished, No Distress, Calm Eyes: Yes: WNL, Conjunctiva Clear, EOM Intact HENT: Yes: WNL, Atraumatic, Normocephalic Neck: Yes: WNL, Supple, Trachea Midline Respiratory: Yes: WNL, Regular, CTA Bilaterally Gastrointestinal: Yes: WNL, Normal Bowel Sounds Renal/: Yes: WNL Cardiovascular: Yes: WNL, Regular Rate and Rhythm Musculoskeletal: Yes: WNL Extremities: Yes: WNL Integumentary: Yes: WNL Neurological: Yes: Alert, Oriented Psychiatric: Yes: Alert - Other Data Labs, Other Data: CBC, BMP 11/24/19 07:18 11/24/19 07:18 INR, PTT INR 1.10 (0.83-1.09) H 11/23/19 06:05 Imaging - Results Chest X-ray: Image Reviewed EKG: Image Reviewed (sn olson septal infarct - new) Assessment/Plan 59-year-old female with history of hyperlipidemia, spinal stenosis presents with worsening paresthesias of the right arm and paresthesias in the lower extremities. 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 EKG Polo Olson at 48 new septal SC Plan; CXR ECHO Repeat EKG
[2019-11-24] MEDS: KETOROLAC TROMETHAMINE 30 MG/1 ML VIAL IVPUSH PRN (17:54)
[2019-11-24] MEDS: LIDOCAINE PATCH REMOVAL MC SCH (21:37)
[2019-11-24] MEDS ORDERED: ATORVASTATIN CA 20 MG TABLET (FP) PO SCH (22:00)
[2019-11-24] MEDS ORDERED: GABAPENTIN 300 MG CAPSULE PO SCH (22:00)
[2019-11-24] MEDS ORDERED: SIMVASTATIN 40 MG PO SCH (22:45)
[2019-11-25] MEDS ORDERED: LIDOCAINE 1%/EPI 1:100000 (20 ML MULTI DOSE VIAL) ONE ×3 (07:49→12:59)
[2019-11-25 08:44] LABS: HEMATOCRIT 39.7 % (32.4-45.2); HEMOGLOBIN 13.3 GM/dL (10.7-15.3); MCH 31.6 pg (25.7-33.7); MCHC 33.5 g/dl (32.0-36.0); MEAN CELL VOLUME 94.2 fl (80-96); MEAN PLT VOLUME 9.6 fl (7.5-11.1); PLATELET COUNT 136 K/MM3 (134-434); RBC 4.21 M/mm3 (3.60-5.2); RDW 12.4 % (11.6-15.6); WHITE BLOOD COUNT 3.7 K/mm3 (4.0-10.0)
[2019-11-25 09:03] LABS: BLOOD UREA NITROGEN 18.8 mg/dL (7-18); CALCIUM 8.9 mg/dL (8.5-10.1); CREATININE 0.9 mg/dL (0.55-1.3)
[2019-11-25] MEDS ORDERED: VANCOMYCIN 1,000 MG VIAL (RESTRICTED TO ID ONLY) ONE (09:40)
[2019-11-25] MEDS ORDERED: LIDOCAINE HCL/PF 2% SDV 5ML VIAL ONE (09:40)
[2019-11-25] MEDS ORDERED: ceFAZolin SODIUM 1 GM VIAL ONE ×3 (09:40→21:47)
[2019-11-25] MEDS ORDERED: ROCURONIUM BROMIDE 50 MG/5 ML SYRINGE ONE ×3 (09:41→14:36)
[2019-11-25] MEDS ORDERED: fentaNYL CITRATE 250 MCG/5 ML VIAL ONE (09:41)
[2019-11-25] MEDS ORDERED: MIDAZOLAM HCL 2 MG/2 ML SINGLE DOSE VIAL ONE ×3 (09:41→15:26)
[2019-11-25] MEDS ORDERED: PROPOFOL 20 ML ONE ×4 (09:41→12:17)
[2019-11-25] MEDS ORDERED: DESFLURANE GAS 240 ML BOTTLE IH ONE (10:07)
[2019-11-25] MEDS ORDERED: THROMBIN (BOVINE) 20,000 UNIT VIAL TP ONE ×2 (10:11→14:49)
[2019-11-25] MEDS ORDERED: GENTAMICIN SO4 80 MG/2 ML VIAL ONE (10:11)
[2019-11-25] MEDS ORDERED: ONDANSETRON 4 MG/2 ML VIAL IVPUSH PRN ×2 (10:41→17:04)
[2019-11-25] MEDS ORDERED: PROMETHAZINE HCL 25 MG/1 ML VIAL IVPUSH PRN ×2 (10:41→17:04)
[2019-11-25] MEDS ORDERED: LACTATED RINGERS SOLUTION 1,000 ML IV SCH (10:45)
[2019-11-25] MEDS ORDERED: HYDROmorphone *PCA* 10MG/50ML DISP.SYRIN PCA SCH (10:45)
[2019-11-25] MEDS ORDERED: BUPIVACAINE LIPOSOME/PF (EXPAREL) 266 MG/20 ML VIAL ONE (10:48)
--- NOTE | 2019-11-25 10:53 | EKG ---
Test Reason : Blood Pressure : / mmHG Vent. Rate : 043 BPM Atrial Rate : 043 BPM P-R Int : 158 ms QRS Dur : 094 ms QT Int : 452 ms P-R-T Axes : 049 -22 024 degrees QTc Int : 381 ms MARKED SINUS BRADYCARDIA ABNORMAL ECG WHEN COMPARED WITH ECG OF 23-NOV-2019 15:36, CRITERIA FOR SEPTAL INFARCT ARE NO LONGER PRESENT Confirmed by Jose Griffith MD ([id number]) on 11/25/2019 10:52:14 AM Referred By: VICENTE BLUNT Confirmed By:Jose Griffith MD
[2019-11-25] MEDS ORDERED: ceFAZolin 2 GRAM PREMIX BAG IVPB ONE (11:11)
--- NOTE | 2019-11-25 11:13 | ECHO ---
Version: 1 Name: GABRIELA GARCIA Exam: Adult Echocardiogram Study Date: 11/25/2019, 8:28 AM Age: 59 Years MMode/2D Measurements & Calculations IVSd: 0.83 cm LVIDs: 2.7 cm LVIDd: 4.8 cm LVPWd: 0.84 cm LAV (MOD-bp): 41.6 ml LVOT diam: 1.99 cm Ao root diam: 2.7 cm LA dimension: 2.8 cm Doppler Measurements & Calculations MV E max michael: 76.0 cm/sec Med E/e': 7.8 MV A max michael: 62.4 cm/sec Med Peak E' Michael: 9.7 cm/sec MV E/A: 1.22 Lat E/e': 7.7 Lat Peak E' Michael: 9.9 cm/sec MR max P.5 mmHg Ao max P.3 mmHg Ao V2 max: 125.2 cm/sec TR max michael: 223.2 cm/sec TR max P.9 mmHg Left Ventricle The left ventricular size, thickness and function are normal. Ejection Fraction = 65%. The transmitr al spectral Doppler flow pattern is normal for age. Right Ventricle The right ventricle is normal in size and function. Atria Normal left and right atrial size and function. Mitral Valve The mitral valve is normal. There is trace mitral regurgitation. Tricuspid Valve The tricuspid valve is normal. There is Trace to mild tricuspid regurgitation. Aortic Valve The aortic valve is normal in structure and function. No aortic regurgitation is present. Pulmonic Valve The pulmonic valve is not well seen, but is grossly normal. There is no pulmonic valvular regurgitat ion. Great Vessels The aortic root is normal size. Normal aortic arch, descending and ascending aorta. Pericardium/Pleura There is no pericardial effusion. Summary Statements The left ventricular size, thickness and function are normal Ejection Fraction = 65%. The transmitral spectral Doppler flow pattern is normal for age. The right ventricle is normal in size and function. Normal left and right atrial size and function. The mitral valve is normal. There is trace mitral regurgitation. The tricuspid valve is normal. There is Trace to mild tricuspid regurgitation. The aortic valve is normal in structure and function. No aortic regurgitation is present. The pulmonic valve is not well seen, but is grossly normal. There is no pulmonic valvular regurgitation. The aortic root is normal size. Normal aortic arch, descending and ascending aorta There is no pericardial effusion. Garrett Andrade 11/25/2019, 11:13 AM Ordering Physician: Lincoln Gomez Performed By: Margareth Marsh
[2019-11-25] MEDS ORDERED: VANCOMYCIN 1,000 MG VIAL (RESTRICTED TO ID ONLY) IVPB ONE (11:15)
[2019-11-25] MEDS ORDERED: LIDOCAINE 1%/EPI 1:100000 (20 ML MULTI DOSE VIAL) IJ ONE (11:31)
[2019-11-25] MEDS ORDERED: THROMBIN (BOVINE) 5,000 UNIT VIAL TP ONE (11:59)
[2019-11-25] MEDS ORDERED: BACITRACIN 50,000 UNITS VIAL TP ONE (12:00)
[2019-11-25] MEDS ORDERED: GENTAMICIN 80MG PREMIX BAG IVPB ONE (12:00)
[2019-11-25] MEDS ORDERED: BUPIVACAINE LIPOSOME/PF (EXPAREL) 266 MG/20 ML VIAL NR ONE ×2 (12:01→15:36)
[2019-11-25] MEDS ORDERED: GELATIN, ABSORBABLE 100 EACH SPONGE TP ONE (12:01)
[2019-11-25] MEDS ORDERED: BUPIVACAINE HCL/PF 0.5% (5 MG/ML) 30 ML VIAL IJ ONE ×2 (12:01→15:36)
[2019-11-25] MEDS ORDERED: EPHEDRINE SULFATE/0.9% NACL/PF 50 MG/10 ML SYRINGE NR ONE (12:10)
--- NOTE | 2019-11-25 14:04 | PN ---
Teaching Attending Note Name of Resident: Michael Lizarraga ATTENDING PHYSICIAN STATEMENT I saw and evaluated the patient. I reviewed the resident's note and discussed the case with the resident. I agree with the resident's findings and plan as documented. SUBJECTIVE: Seen and examined at bedside. EKG and echocardiogram unremarkable. Patient is medically cleared for OR, pending cardiology clearance OBJECTIVE Last Vital Signs Temp Pulse Resp BP Pulse Ox 98.5 F 44 L 20 121/58 L 99 11/24/19 06:38 11/24/19 06:38 11/24/19 09:00 11/24/19 06:38 11/24/19 09:00 PE: Per resident note Labs/Imaging: reviewed ASSESSMENT/PLAN 59-year-old female with history of hyperlipidemia, spinal stenosis presents with worsening paresthesias of the right arm and paresthesias in the lower extremities. 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 Patient is RCRI 0 there is minimal risk for a moderate risk procedure. Patient is medically cleared for the OR pending cardiac clearance in the setting of sinus bradycardia. #Progressive cervical myelopathy Seen by neurosurgery. -Patient is medically cleared for the OR pending cardiac clearance in the setting of sinus bradycardia. #Bradycardia EKG ordered Cardiology consulted for preoperative clearance in the setting of bradycardia
[2019-11-25] MEDS ORDERED: GLYCOPYRROLATE 0.2 MG/1 ML VIAL ONE (14:17)
[2019-11-25] MEDS ORDERED: NEOSTIGMINE METHYLSULFATE 0.5 MG/1 ML - 10 ML MDV ONE (14:17)
[2019-11-25] MEDS ORDERED: ONDANSETRON 4 MG/2 ML VIAL ONE ×2 (16:24→19:59)
--- NOTE | 2019-11-25 16:48 | OP ---
Operative Note - Note: Operative Date: 11/25/19 Pre-Operative Diagnosis: cervical spodylotic myelopathy Operation: Anterior C4, 5, 6 corpectomy with Cage and fusion of C3-C7 with pedicle screws. Posterior lamiectomy decompression of C2-thru T7 with pedicle screws Surgeon: Cortez Massey Ink Technician: Eri Rice Anesthesiologist/DATA COMMUNICATIONS SOFTWARE CONSULTANT: Nikki Rosas Anesthesia: General Estimated Blood Loss (mls): 1,350 Drains, Volume Out (mls): 150 (andrade) Blood Volume Replaced (mls): 350 Fluid Volume Replaced (mls): 3,800 Operative Report Dictated: Yes
[2019-11-25] MEDS ORDERED: BENZOCAINE/MENTH/CETYLPYRD CL 1 EACH LOZENGE MM PRN (17:04)
[2019-11-25] MEDS ORDERED: POLYETHYLENE GLYCOL 3350 119 GM BTL PO PRN (17:04)
[2019-11-25] MEDS ORDERED: SIMETHICONE 80 MG TAB.CHEW (FP) PO PRN (17:04)
[2019-11-25] MEDS ORDERED: FAMOTIDINE 10 MG TABLET PO PRN (17:04)
--- NOTE | 2019-11-25 17:38 | PN ---
Physical Exam: SUBJECTIVE: Patient seen and examined prior to OR. Pt. denies any acute complaints, for OR today, as cleared by cardiology following benign ECHO and EKG. In afternoon, s/p procedure received signout that Pt. is hemodynamically stable currently but that she has chest pain. During procedure Pt. had EBL of 1.4L, received 1 unit pRBCs and had an episode of hypotension. OBJECTIVE: Vital Signs Period Temp Pulse Resp BP Sys/Mandujano Pulse Ox Last 24 Hr 98.5 F-98.5 F 53-60 20-20 119-127/50-63 95-100 GENERAL: The patient is awake, alert, and fully oriented, in no acute distress. HEAD: Normal with no signs of trauma. EYES: Sclera anicteric, conjunctiva clear. No ptosis. ENT: moist mucous membranes. NECK: Trachea midline, full range of motion, supple. Slight tenderness w/ movement on right LUNGS: Breath sounds equal, clear to auscultation bilaterally, no wheezes, no crackles, no accessory muscle use. HEART: Regular rate and Irregular rhythm, S1, S2 without murmur ABDOMEN: Soft, nontender, nondistended, normoactive bowel sounds, no guarding, no rebound. Spinal tenderness in cervical region EXTREMITIES: 2+ dorsal pedal pulses, warm, no calf tenderness well-perfused, no edema. 5/5 LE strength throughout NEUROLOGICAL: Normal speech, gait not observed. Sensation grossly in tact throughout. PSYCH: Normal mood, normal affect. SKIN: Warm, dry, normal turgor, no rashes or lesions noted Laboratory Results - last 24 hr 11/25/19 11/25/19 11/25/19 08:02 08:02 08:02 WBC 3.7 L RBC 4.21 Hgb 13.3 Hct 39.7 MCV 94.2 MCH 31.6 MCHC 33.5 RDW 12.4 Plt Count 136 MPV 9.6 Sodium 143 Potassium 4.0 Chloride 109 H Carbon Dioxide 28 Anion Gap 6 L BUN 18.8 H Creatinine 0.9 Est GFR (CKD-EPI)AfAm 80.55 Est GFR (CKD-EPI)NonAf 69.50 Random Glucose 85 Calcium 8.9 Blood Type B POSITIVE Antibody Screen Negative Crossmatch IS Only See Detail Active Medications Generic Name Dose Route Start Last Admin Trade Name Freq PRN Reason Stop Dose Admin Acetaminophen 650 mg 11/25/19 17:04 Tylenol - PO Q4H PRN PAIN LEVEL 1-5 Benzocaine/Menthol 1 each 11/25/19 17:04 Cepacol Lozenge - MM PRN PRN SORE THROAT Docusate Sodium 100 mg 11/25/19 22:00 Colace - PO TID JUSTEN Famotidine 10 mg 11/25/19 17:04 Acid Image Scientist PO BID PRN INDIGESTION Fentanyl 50 mcg 11/25/19 17:04 Sublimaze Injection - IVPUSH [id number] PRN PAIN-PACU ORDER X 4 DOSES ONLY Ferrous Sulfate 325 mg 11/26/19 10:00 Feosol - PO DAILY JUSTEN Folic Acid 1 mg 11/26/19 10:00 Folic Acid - PO DAILY [facility] Gabapentin 600 mg 11/25/19 22:00 Neurontin - PO HS [facility] Heparin Sodium (Porcine) 5,000 unit 11/26/19 09:00 Heparin - SQ Q8H [facility] Hydromorphone HCl 10 mg 11/25/19 17:04 Hydromorphone 10 Mg/50 Ml-Ns CODIFIER 12/02/19 10:42 CODIFIER [facility] Protocol Lactated Ringer's 1,000 mls @ 125 mls/hr 11/25/19 17:04 Lactated Ringers Solution IV ASDIR [facility] Cefazolin Sodium 1 gm/ 50 mls @ 100 mls/hr 11/25/19 22:00 Dextrose IVPB Q8H-IV [facility] Miscellaneous 1 each 11/25/19 22:00 Lidoderm Patch Removal MC DAILY@2200 [facility] Non-Formulary Medication 1 each 11/25/19 22:00 Non-Formulary Med PO HS [facility] Ondansetron HCl 4 mg 11/25/19 17:04 Zofran Injection IVPUSH Q6H PRN NAUSEA AND/OR VOMITING Polyethylene Glycol 17 gm 11/25/19 17:04 Miralax (For Daily Use) - PO DAILY PRN CONSTIPATION Promethazine HCl 12.5 mg 11/25/19 17:04 Phenergan Injection - IVPUSH Q6H PRN NAUSEA-FOR RESCUE AFTER 15 MIN Senna 1 tab 11/25/19 22:00 Senna - PO HS [facility] Simethicone 80 mg 11/25/19 17:04 Mylicon - PO Q4H PRN GAS ASSESSMENT/PLAN: Pt. is a 59 y.o. F w/ PMHx. of HLD and Chronic back pain presents with worsening paresthesias of the right arm and now with generalized weakness and worsening paresthesias now affecting her lower extremities as well. #Radiculopathy Pt. states that she picked up a Pt. ~4 years ago who was falling and symptoms started. Pt. over the last year has delayed surgery because of family problems at home and then the COVID pandemic Neurosurgery consulted--> for the OR in AM pending medical and cardiac clearance Pt. denies any cardiac history or any problems on exertion MRI CSpine positive for large central disc herniation at C6-C7 with effacement of ventral thecal sac and contacting the spinal cord, moderate spinal canal stenosis, C3-C4 with moderate bilateral foraminal stenosis c/w Toradol for pain, will add Morphine for break through pain c/w Lidoderm patch c/w Tylenol resumed Gabapentin cardiology consult appreciated for clearance prior to surgery. Echo wnl, EF 65%, repeat EKG did not shows sings of prior septal KS, still with bradycardia. #Chest pain r/ ACS f/u Troponin f/u Rpt. EKG received 1 unit intraoperatively, may need additional units, normal transfusion threshold. f/u cardiology consult monitor on telemetry pain control #HLD c/w Simvastatin hold ASA #DVT Ppx. SCDs, holding ASA( Primary prevention) Visit type - Emergency Visit Emergency Visit: Yes ED Registration Date: 11/22/19 Care time: The patient presented to the Emergency Department on the above date and was hospitalized for further evaluation of their emergent condition. - New Patient This patient is new to me today: No - Critical Care Critical Care patient: No - Discharge Referral Referred to [facility] Med [facility] No ATTENDING PHYSICIAN STATEMENT I saw and evaluated the patient. I reviewed the resident's note and discussed the case with the resident. I agree with the resident's findings and plan as documented. SUBJECTIVE: OBJECTIVE: ASSESSMENT AND PLAN:
[2019-11-25] MEDS ORDERED: FAMOTIDINE 20 MG/50 ML IVPB 20 MG/50 ML MG IVPB ONE (17:41)
[2019-11-25] MEDS: LACTATED RINGERS SOLUTION 1,000 ML IV SCH (18:00)
[2019-11-25 18:03] LABS: BASO % 0.1 % (0-2.0); HEMATOCRIT 30.3 % (32.4-45.2); HEMOGLOBIN 10.2 GM/dL (10.7-15.3); LYMPH % 3.4 % (8-40); MCH 30.8 pg (25.7-33.7); MCHC 33.8 g/dl (32.0-36.0); MEAN CELL VOLUME 91.3 fl (80-96); MEAN PLT VOLUME 9.7 fl (7.5-11.1); MONO % 1.4 % (3.8-10.2); NEUT % 95.1 % (42.8-82.8); PLATELET COUNT 106 K/MM3 (134-434); RBC 3.32 M/mm3 (3.60-5.2); RDW 15.1 % (11.6-15.6); WHITE BLOOD COUNT 10.7 K/mm3 (4.0-10.0)
[2019-11-25 18:25] LABS: CALCIUM 7.3 mg/dL (8.5-10.1)
[2019-11-25] MEDS: HYDROmorphone *PCA* 10MG/50ML DISP.SYRIN PCA SCH (18:35)
[2019-11-25] MEDS ORDERED: DEXTROSE 5%-WATER - 50 ML IVPB ONE (21:47)
[2019-11-25] MEDS ORDERED: LIDOCAINE PATCH REMOVAL MC SCH (22:00)
[2019-11-25] MEDS: CEFAZOLIN 1 GM in DEXTROSE 5%-WATER - 50 ML IVPB SCH (22:10)
[2019-11-25] MEDS: GABAPENTIN 300 MG CAPSULE PO SCH (22:11)
[2019-11-25] MEDS: DOCUSATE SODIUM 100 MG CAPSULE (FP) PO SCH (22:11)
[2019-11-25] MEDS: NON-FORMULARY MED PO SCH (22:11)
[2019-11-25] MEDS: SENNOSIDES 8.6MG TABLET (FP) PO SCH (22:11)
--- NOTE | 2019-11-26 | PN ---
Progress Note, Physician Chief Complaint: Pt A&Ox3; no chest pain or dyspnea; + pain and reduced ROM of neck; weakness in arms. History of Present Illness: Ms. Flood is a 59 year old female with a significant past medical history of cervical spine stenosis and arthropathy, who presents to the ED with neck pain, difficulty walking, and pain x1 month. Patient describes her neck pain as a "burning sensation" which radiates down to her right arm causing weakness and her knee pain causing her to have unsteady gait. Patient disclosed she attempted to self medicate with ibuprofen prior to ED arrival but experienced no relief. Patient reports falling 2 days ago. Patient said she is supposed to get an MRI and see neurologist next week. - Current Medication List Current Medications: Active Medications Acetaminophen (Tylenol -) 650 mg PO Q4H PRN PRN Reason: PAIN LEVEL 1-5 Benzocaine/Menthol (Cepacol Lozenge -) 1 each MM PRN PRN PRN Reason: SORE THROAT Docusate Sodium (Colace -) 100 mg PO TID [facility] Last Admin: 11/25/19 22:11 Dose: Not Given Documented by: Famotidine (Acid Data Science And Iot Manager) 10 mg PO BID PRN PRN Reason: INDIGESTION Ferrous Sulfate (Feosol -) 325 mg PO 0800 [facility] Folic Acid (Folic Acid -) 1 mg PO DAILY [facility] Gabapentin (Neurontin -) 600 mg PO [facility] Last Admin: 11/25/19 22:11 Dose: Not Given Documented by: Heparin Sodium (Porcine) (Heparin -) 5,000 unit SQ TID [facility] Hydromorphone HCl (Hydromorphone 10 Mg/50 Ml-Ns) 10 mg CONSTRUCTION ACCOUNTANT CONSTRUCTION ACCOUNTANT [facility]; Protocol Stop: 12/02/19 10:42 Last Admin: 11/25/19 18:35 Dose: 10 mg Documented by: Lactated Ringer's (Lactated Ringers Solution) 1,000 mls @ 125 mls/hr IV ASDIR [facility] Last Admin: 11/25/19 18:00 Dose: 400 mls Documented by: Cefazolin Sodium 1 gm/ (Dextrose) 50 mls @ 100 mls/hr IVPB Q8H [facility] Last Admin: 11/25/19 22:10 Dose: 100 mls/hr Documented by: Non-Formulary Medication (Non-Formulary Med) 1 each PO [facility] Last Admin: 11/25/19 22:11 Dose: Not Given Documented by: Polyethylene Glycol (Miralax (For Daily Use) -) 17 gm PO DAILY PRN PRN Reason: CONSTIPATION Senna (Senna -) 1 tab PO [facility] Last Admin: 11/25/19 22:11 Dose: Not Given Documented by: Simethicone (Mylicon -) 80 mg PO Q4H PRN PRN Reason: GAS - Objective Vital Signs: Vital Signs Temperature 98.2 F 11/25/19 23:13 Pulse Rate 56 L 11/25/19 23:13 Respiratory Rate 11/25/19 23:13 Blood Pressure 111/64 11/25/19 23:13 O2 Sat by Pulse Oximetry (%) 96 11/25/19 23:13 Constitutional: Yes: Calm Eyes: Yes: WNL HENT: Yes: WNL Neck: Yes: Decreased ROM Cardiovascular: Yes: Bradycardia, S1, S2 Respiratory: Yes: WNL Gastrointestinal: Yes: Soft. No: Tenderness ...Rectal Exam: Yes: Deferred Genitourinary: No: Anuria Breast(s): Yes: WNL Musculoskeletal: Yes: Back Pain, Muscle Weakness Extremities: Yes: Cool, Other Edema: No Peripheral Pulses WNL: Yes Integumentary: Yes: Incision Wound/Incision: Yes: Clean/Dry Neurological: Yes: Alert, Oriented, Weakness Psychiatric: Yes: Alert, Oriented, Other (anxiety) Labs: CBC, BMP 11/25/19 17:25 11/25/19 17:25 INR, PTT INR 1.10 (0.83-1.09) H 11/23/19 06:05 Abnormal Lab Results 11/25/19 11/28/19 11/28/19 08:02 11:55 19:45 RBC 2.82 L Hgb 8.8 L Hct 25.6 L Plt Count 71 L Anion Gap Creatinine Calcium Crossmatch See Detail Crossmatch IS Only See Detail 11/29/19 11/29/19 10:40 10:40 RBC 2.97 L Hgb 9.3 L Hct 26.8 L Plt Count 90 L D Anion Gap 6 L Creatinine 0.5 L Calcium 8.2 L Crossmatch Crossmatch IS Only - ....Imaging Chest X-ray: Image Reviewed Ultrasound: Report Reviewed EKG: Image Reviewed Assessment/Plan Ms Miller is a 59-year-old female with history of hyperlipidemia, spinal stenosis, who presents with worsening paresthesias of the right arm and paresthesias in the lower extremities. 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 Initial EKG: S. Boo at 49 bpm; new septal MN; repeat EKG notes marked sinus bradycardia of 43 bpm, with septal MN no longer present. ECHO: normal LVEF CXR: no acute pathology; stable rt lung nodule Total cholesterol: 157 mg/dL. TSH WNL Plan: For cervical spine surgery. Pulse rate variable, from 40s to 72 bpm at rest. Post-op, avoid lidocaine and toradol, both of which may contribute to bradycardia. Pain management. Maintain fluids, f/u Hb post-op; f/u BP and HR.
[2019-11-26] MEDS ORDERED: DEXTROSE 5%-WATER - 50 ML IVPB ONE ×3 (05:19→22:51)
[2019-11-26] MEDS ORDERED: ceFAZolin SODIUM 1 GM VIAL ONE ×3 (05:19→22:51)
[2019-11-26] MEDS: CEFAZOLIN 1 GM in DEXTROSE 5%-WATER - 50 ML IVPB SCH ×3 (05:56→22:53)
[2019-11-26] MEDS: DOCUSATE SODIUM 100 MG CAPSULE (FP) PO SCH ×3 (06:00→22:53)
[2019-11-26 07:29] LABS: HEMATOCRIT 26.3 % (32.4-45.2); MCH 30.9 pg (25.7-33.7); MCHC 34.3 g/dl (32.0-36.0); MEAN CELL VOLUME 89.9 fl (80-96); MEAN PLT VOLUME 9.6 fl (7.5-11.1); PLATELET COUNT 101 K/MM3 (134-434); RBC 2.92 M/mm3 (3.60-5.2); RDW 15.6 % (11.6-15.6); WHITE BLOOD COUNT 10.2 K/mm3 (4.0-10.0)
[2019-11-26 07:34] LABS: BLOOD UREA NITROGEN 18.6 mg/dL (7-18); CALCIUM 7.8 mg/dL (8.5-10.1); CREATININE 0.7 mg/dL (0.55-1.3); POTASSIUM 4.3 mmol/L (3.5-5.1)
[2019-11-26] MEDS: LACTATED RINGERS SOLUTION 1,000 ML IV SCH ×2 (09:10→18:36)
--- NOTE | 2019-11-26 09:46 | PN ---
Progress Note (short form) - Note Progress Note: Surgery POD #1 C4, 5, 6 corpectomy with Cage and fusion of C3-C7 with pedicle screws. Posterior lamiectomy decompression of C2-thru T7 with pedicle screws. Patient seen and examined on AM rounds with no complaints. Patient states she is using the PRODUCTION CONTROL COORDINATING CLERK mostly when she moves. She is tolerating ice chips and denies any CP, SOB, N/V, Fever or chills. Prior to OR OR, as cleared by cardiology following benign ECHO and EKG. In afternoon, s/p procedure she had complained of some chest pain. She was placed on Tele and had RPT Troponins and RPT EKG which have been unchanged from her pre-op evaluation. During procedure Pt. had EBL of 1.4L, received 1 unit pRBCs and had an episode of hypotension. Vital Signs Period Temp Pulse Resp BP Sys/Mandujano Pulse Ox Last 24 Hr 97.8 F-99.0 F 52-109 12-20 88-122/40-75 96-100 CBC, BMP 11/26/19 06:12 11/26/19 06:12 Drain output x2 collectively 150cc- We have asked these to be recorded separately Abnormal Lab Results 11/25/19 11/25/19 11/25/19 08:02 17:25 17:25 WBC 10.7 H RBC 3.32 L Hgb 10.2 L Hct 30.3 L D Plt Count 106 L D Absolute Neuts (auto) 10.2 H Neutrophils % 95.1 H D Neutrophils % (Manual) 95.0 H Lymphocytes % 3.4 L D Lymphocytes % (Manual) 3.0 L Monocytes % 1.4 L D Monocytes % (Manual) 0 L Chloride 114 H BUN Random Glucose 203 H Calcium 7.3 L Crossmatch IS Only See Detail 11/26/19 11/26/19 06:12 06:12 WBC 10.2 H RBC 2.92 L Hgb 9.0 L Hct 26.3 L Plt Count 101 L Absolute Neuts (auto) Neutrophils % Neutrophils % (Manual) Lymphocytes % Lymphocytes % (Manual) Monocytes % Monocytes % (Manual) Chloride 109 H BUN 18.6 H Random Glucose 146 H Calcium 7.8 L Crossmatch IS Only Troponin I <0.02 PE: A&Ox3, NAD Unlabored resp on RA Anterior incision: dressing c/d/i with drain in good position. trachea midline with no midline shift. Surrounding tissue with no tracking erythema or significant edema. Posterior incision: dressing c/d/i with drain secure and in good position. surrounding tissue with no tracking erythema, edema or evidence of collection or active d/c B/L UE: 2/5 software sales representative,biceps and triceps on left, 4/5 software sales representative, biceps and triceps on right. B/L LE compartments soft, supple and non-tender with +DP pulses. Repeat ECG: Marked sinus Bradycardia, abnormal ECG when compared to ECG of Nov 22 15:36, criteria for septal infarct are no longer present Problem List - Problems (1) Cervical stenosis of spinal canal Assessment/Plan: POD #1 ACDF C4-C6, with posterior decompression and fusion C2-T1. Patient stable after experiencing some post procedure chest pain in the setting of acute blood loss anemia and transfusion of 1 unit PRBC. No significant changes on rpt ECG and Troponin I WNL. She remains bradycardic and slightly hypotnensive, however H&H stable at 9.0/26.3. -Continue close observation on Telemetry -Cardiology follow up and recs appreciated -d/c andrade -soft diet-advance as tolerated -DVT prophylaxis as ordered-ok to start sq Heparin -trend daily labs-follow normal transfusion perameters in cardiac (recent MT) setting -Repeat CBC this afternoon - Will consider to wean PRODUCTION CONTROL COORDINATING CLERK today transition or PO meds Evaluation and plan discussed with Dr Massey and Dr Gill. Code(s): M48.02 - SPINAL STENOSIS, CERVICAL REGION
[2019-11-26] MEDS: FOLIC ACID 1 MG TABLET (FP) PO SCH (10:12)
[2019-11-26] MEDS: FERROUS SO4 325 MG TABLET (FP) PO SCH (10:12)
[2019-11-26] MEDS: HEPARIN NA (PORCINE) 5,000 UNITS/ML 1ML VIAL SQ SCH ×3 (10:12→22:53)
--- NOTE | 2019-11-26 10:41 | PN ---
Progress Note (short form) - Note Progress Note: 59F s/p ACDF C4-C6, with posterior decompression and fusion C2-T1, POD#1. Dilaudid ASSOCIATE ORACLE RETAIL part of analgesic regimen. All Active Problems Cervical stenosis of spinal canal (Acute) Chest pain (Acute) Nephrolithiasis (Acute) Vital Signs Temp 98.6 F 11/26/19 09:00 Pulse 52 L 11/26/19 09:00 Resp 20 11/26/19 09:00 BP 88/40 L 11/26/19 09:00 Pulse Ox 100 11/26/19 09:00 Intake & Output 11/25/19 11/25/19 11/26/19 11:59 23:59 11:59 Intake Total 3000 1700 1250 Output Total 2450 450 Balance 3000 -750 800 Intake: IV 3000 1350 1250 Lactated Ringers Solution 1250 1,000 ml @ 125 mls/hr IV ASDIR [facility] Rx#: [id number] IVPB 0 Oral 0 Blood Product 350 Output: Drainage 150 150 Neck 150 Urine 950 300 Potter 300 Estimated Blood Loss 1350 Other: Voiding Method Toilet Toilet Weight Measurement Method Standing Scale Current Medications Generic Name Dose Route Start Last Admin Trade Name Freq PRN Reason Stop Dose Admin Acetaminophen 650 mg 11/25/19 17:04 Tylenol - PO Q4H PRN PAIN LEVEL 1-5 Benzocaine/Menthol 1 each 11/25/19 17:04 Cepacol Lozenge - MM PRN PRN SORE THROAT Docusate Sodium 100 mg 11/25/19 22:00 11/26/19 06:00 Colace - PO Not Given TID JUSTEN Famotidine 10 mg 11/25/19 17:04 Acid Chemical Treatment Operator PO BID PRN INDIGESTION Ferrous Sulfate 325 mg 11/26/19 08:00 11/26/19 10:12 Feosol - PO 325 mg 0800 JUSTEN Administration Folic Acid 1 mg 11/26/19 10:00 11/26/19 10:12 Folic Acid - PO 1 mg DAILY JUSTEN Administration Gabapentin 600 mg 11/25/19 22:00 11/25/19 22:11 Neurontin - PO Not Given HS JUSTEN Heparin Sodium (Porcine) 5,000 unit 11/26/19 09:00 11/26/19 10:12 Heparin - SQ 5,000 unit TID JUSTEN Administration Hydromorphone HCl 10 mg 11/25/19 17:04 11/25/19 18:35 Hydromorphone 10 Mg/50 Ml-Ns ASSOCIATE [employer]ACLE RETAIL 12/02/19 10:42 10 mg ASSOCIATE ORACLE RETAIL JUSTEN Administration Protocol Lactated Ringer's 1,000 mls @ 125 mls/hr 11/25/19 17:04 11/26/19 09:10 Lactated Ringers Solution IV 125 mls/hr ASDIR JUSTEN Administration Cefazolin Sodium 1 gm/ 50 mls @ 100 mls/hr 11/25/19 22:00 11/26/19 05:56 Dextrose IVPB 100 mls/hr Q8H JUSTEN Administration Non-Formulary Medication 1 each 11/25/19 22:00 11/25/19 22:11 Non-Formulary Med PO Not Given HS JUSTEN Polyethylene Glycol 17 gm 11/25/19 17:04 Miralax (For Daily Use) - PO DAILY PRN CONSTIPATION Senna 1 tab 11/25/19 22:00 11/25/19 22:11 Senna - PO Not Given HS JUSTEN Simethicone 80 mg 11/25/19 17:04 Mylicon - PO Q4H PRN GAS - lying in bed, C-collar, NAD - RRR, CTAB CBC, BMP 11/26/19 06:12 11/26/19 06:12 - No anesthesia complications - Will follow for ASSOCIATE [employer]ACLE RETAIL management, transition to PO analgesic regimen. Continue ASSOCIATE [employer]ACLE RETAIL for now.
[2019-11-26] MEDS ORDERED: ONDANSETRON 4 MG/2 ML VIAL IVPUSH PRN (10:53)
--- NOTE | 2019-11-26 11:02 | PN ---
Progress Note, Physician History of Present Illness: 59-year-old female with history of hyperlipidemia, spinal stenosis presents with worsening paresthesias of the right arm and paresthesias in the lower extremities. 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 - Current Medication List Current Medications: Active Medications Acetaminophen (Tylenol -) 650 mg PO Q4H PRN PRN Reason: PAIN LEVEL 1-5 Benzocaine/Menthol (Cepacol Lozenge -) 1 each MM PRN PRN PRN Reason: SORE THROAT Docusate Sodium (Colace -) 100 mg PO TID [facility] Last Admin: 11/26/19 06:00 Dose: Not Given Documented by: Famotidine (Acid Esters And Emulsifiers Supervisor) 10 mg PO BID PRN PRN Reason: INDIGESTION Ferrous Sulfate (Feosol -) 325 mg PO 0800 [facility] Last Admin: 11/26/19 10:12 Dose: 325 mg Documented by: Folic Acid (Folic Acid -) 1 mg PO DAILY [facility] Last Admin: 11/26/19 10:12 Dose: 1 mg Documented by: Gabapentin (Neurontin -) 600 mg PO [facility] Last Admin: 11/25/19 22:11 Dose: Not Given Documented by: Heparin Sodium (Porcine) (Heparin -) 5,000 unit SQ TID [facility] Last Admin: 11/26/19 10:12 Dose: 5,000 unit Documented by: Hydromorphone HCl (Hydromorphone 10 Mg/50 Ml-Ns) 10 mg PHARMACY COORDINATOR PHARMACY COORDINATOR [facility]; Protocol Stop: 12/02/19 10:42 Last Admin: 11/25/19 18:35 Dose: 10 mg Documented by: Lactated Ringer's (Lactated Ringers Solution) 1,000 mls @ 125 mls/hr IV ASDIR [facility] Last Admin: 11/26/19 09:10 Dose: 125 mls/hr Documented by: Cefazolin Sodium 1 gm/ (Dextrose) 50 mls @ 100 mls/hr IVPB Q8H [facility] Last Admin: 11/26/19 05:56 Dose: 100 mls/hr Documented by: Non-Formulary Medication (Non-Formulary Med) 1 each PO HS [facility] Last Admin: 11/25/19 22:11 Dose: Not Given Documented by: Ondansetron HCl (Zofran Injection) 4 mg IVPUSH Q6H PRN PRN Reason: NAUSEA Polyethylene Glycol (Miralax (For Daily Use) -) 17 gm PO DAILY PRN PRN Reason: CONSTIPATION Senna (Senna -) 1 tab PO HS [facility] Last Admin: 11/25/19 22:11 Dose: Not Given Documented by: Simethicone (Mylicon -) 80 mg PO Q4H PRN PRN Reason: GAS - Objective Vital Signs: Vital Signs Temperature 98.6 F 11/26/19 09:00 Pulse Rate 52 L 11/26/19 09:00 Respiratory Rate 20 11/26/19 09:00 Blood Pressure 88/40 L 11/26/19 09:00 O2 Sat by Pulse Oximetry (%) 100 11/26/19 09:00 Eyes: Yes: WNL, Conjunctiva Clear, EOM Intact HENT: Yes: WNL, Atraumatic, Normocephalic Neck: Yes: WNL, Supple, Trachea Midline Cardiovascular: Yes: WNL, Regular Rate and Rhythm Respiratory: Yes: WNL, Regular, CTA Bilaterally Gastrointestinal: Yes: WNL, Normal Bowel Sounds Genitourinary: Yes: WNL Musculoskeletal: Yes: WNL Extremities: Yes: WNL Edema: No Integumentary: Yes: WNL Labs: CBC, BMP 11/26/19 06:12 11/26/19 06:12 INR, PTT INR 1.10 (0.83-1.09) H 11/23/19 06:05 Assessment/Plan Ms Miller is a 59-year-old female with history of hyperlipidemia, spinal stenosis, who presents with worsening paresthesias of the right arm and paresthesias in the lower extremities. 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 Initial EKG: S. Boo at 49 bpm; new septal SD; repeat EKG notes marked sinus bradycardia of 43 bpm, with septal SD no longer present. ECHO: normal LVEF CXR: no acute pathology; stable rt lung nodule Total cholesterol: 157 mg/dL. TSH WNL s/p cervical spine surgery. Plan: Pulse rate variable, from 40s to 72 bpm at rest. Post-op, avoid lidocaine and toradol, both of which may contribute to bradycardia. Pain management. Maintain fluids, f/u Hb post-op; f/u BP and HR.
--- NOTE | 2019-11-26 12:30 | PN ---
Teaching Attending Note Name of Resident: James Peter ATTENDING PHYSICIAN STATEMENT I saw and evaluated the patient. I reviewed the resident's note and discussed the case with the resident. I agree with the resident's findings and plan as documented. SUBJECTIVE: Seen and examined at bedside. Significant postoperative drop in hemoglobin to 9. Patient currently on normal saline at 125 mL's per hour, hemodynamically stable and asymptomatic. We will continue to monitor OBJECTIVE Last Vital Signs Temp Pulse Resp BP Pulse Ox 98.6 F 54 L 20 106/42 L 100 11/26/19 09:00 11/26/19 11:39 11/26/19 11:39 11/26/19 11:39 11/26/19 11:39 PE: Per resident note Labs/Imaging: reviewed ASSESSMENT/PLAN 59-year-old female with history of hyperlipidemia, spinal stenosis presents with worsening paresthesias of the right arm and paresthesias in the lower extremities. 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 Patient is RCRI 0 there is minimal risk for a moderate risk procedure. Patient is medically cleared for the OR pending cardiac clearance in the setting of sinus bradycardia. #Progressive cervical myelopathy PO day #1 surgical intervention -surgery on board: appreciate recs #Acute blood loss anemia Patient currently hemodynamically stable on fluids. On my exam blood pressure 124/50 with heart rate of 57. Hemoglobin 9 this morning Repeat hemoglobin this afternoon Transfuse to goal of hemoglobin of 8 or if patient becomes symptomatic #Bradycardia EKG/echo unremarkable -cards on board: appreciate recs -avoid lidocaine/toradol
--- NOTE | 2019-11-26 13:42 | PN ---
Physical Exam: SUBJECTIVE: Patient seen and examined at bedside. She denies further episodes of chest pain or palpitations. She denies subjective fevers, chills. OBJECTIVE: Vital Signs Period Temp Pulse Resp BP Sys/Mandujano Pulse Ox Last 24 Hr 97.8 F-99.0 F 52-109 12-20 88-122/40-75 96-100 GENERAL: The patient is awake, alert, and fully oriented, in no acute distress. HEAD: Normocephalic, atraumatic. EYES: PERRL, extraocular movements intact, sclera anicteric, conjunctiva clear. ENT: Oropharynx clear, without erythema or exudates. Moist mucous membranes. NECK: Cervical collar in place. Supple. Negative stridor auscultated. LUNGS: Breath sounds equal, clear to auscultation bilaterally. No wheezes, no crackles. No accessory muscle use. HEART: Regular rate and rhythm. S1, S2 without murmur, rub or gallop. ABDOMEN: Soft, nondistended, nontender to light and deep palpation x4 quadrants. No rebound tenderness, no guarding. Normoactive bowel sounds x4 quadrants. No hepatosplenomegaly, no masses appreciated. EXTREMITIES: 2+ radial, dorsalis pedis pulses bilaterally. Warm, well-perfused. No lower extremity edema bilaterally. NEUROLOGICAL: Cranial nerves II through XII grossly intact. Normal speech. Right upper extremity strength 4/5, left upper extremity strength 3/5. Bilateral lower extremities strength 5/5. PSYCH: Normal mood, normal affect upon my encounter. SKIN: Warm, dry. Laboratory Results - last 24 hr 11/25/19 11/25/19 11/25/19 08:02 17:25 17:25 WBC 10.7 H RBC 3.32 L Hgb 10.2 L Hct 30.3 L D MCV 91.3 MCH 30.8 MCHC 33.8 RDW 15.1 D Plt Count 106 L D MPV 9.7 Absolute Neuts (auto) 10.2 H Neutrophils % 95.1 H D Neutrophils % (Manual) 95.0 H Band Neutrophils % 1.0 Lymphocytes % 3.4 L D Lymphocytes % (Manual) 3.0 L Monocytes % 1.4 L D Monocytes % (Manual) 0 L Eosinophils % 0.0 D Eosinophils % (Manual) 0.0 Basophils % 0.1 Basophils % (Manual) 0.0 Myelocytes % (Man) 0 Promyelocytes % (Man) 0 Blast Cells % (Manual) 0 Nucleated RBC % 0 Metamyelocytes 1 Sodium 144 Potassium 4.0 Chloride 114 H Carbon Dioxide 22 Anion Gap 8 BUN 18.0 Creatinine 1.0 Est GFR (CKD-EPI)AfAm 70.91 Est GFR (CKD-EPI)NonAf 61.19 Random Glucose 203 H Calcium 7.3 L Troponin I Blood Type B POSITIVE Antibody Screen Negative Crossmatch IS Only See Detail 11/25/19 11/26/19 11/26/19 17:25 06:12 06:12 WBC 10.2 H RBC 2.92 L Hgb 9.0 L Hct 26.3 L MCV 89.9 MCH 30.9 MCHC 34.3 RDW 15.6 Plt Count 101 L MPV 9.6 Absolute Neuts (auto) Neutrophils % Neutrophils % (Manual) Band Neutrophils % Lymphocytes % Lymphocytes % (Manual) Monocytes % Monocytes % (Manual) Eosinophils % Eosinophils % (Manual) Basophils % Basophils % (Manual) Myelocytes % (Man) Promyelocytes % (Man) Blast Cells % (Manual) Nucleated RBC % Metamyelocytes Sodium 142 Potassium 4.3 Chloride 109 H Carbon Dioxide 25 Anion Gap 8 BUN 18.6 H Creatinine 0.7 Est GFR (CKD-EPI)AfAm 109.15 Est GFR (CKD-EPI)NonAf 94.17 Random Glucose 146 H Calcium 7.8 L Troponin I < 0.02 Blood Type Antibody Screen Crossmatch IS Only Active Medications Generic Name Dose Route Start Last Admin Trade Name Freq PRN Reason Stop Dose Admin Acetaminophen 650 mg 11/25/19 17:04 Tylenol - PO Q4H PRN PAIN LEVEL 1-5 Benzocaine/Menthol 1 each 11/25/19 17:04 Cepacol Lozenge - MM PRN PRN SORE THROAT Docusate Sodium 100 mg 11/25/19 22:00 11/26/19 06:00 Colace - PO Not Given TID UJSTEN Famotidine 10 mg 11/25/19 17:04 Acid Aviation Electrical Technician PO BID PRN INDIGESTION Ferrous Sulfate 325 mg 11/26/19 08:00 11/26/19 10:12 Feosol - PO 325 mg 0800 JUSTEN Administration Folic Acid 1 mg 11/26/19 10:00 11/26/19 10:12 Folic Acid - PO 1 mg DAILY JUSTEN Administration Gabapentin 600 mg 11/25/19 22:00 11/25/19 22:11 Neurontin - PO Not Given HS JUSTEN Heparin Sodium (Porcine) 5,000 unit 11/26/19 09:00 11/26/19 10:12 Heparin - SQ 5,000 unit TID JUSTEN Administration Hydromorphone HCl 10 mg 11/25/19 17:04 11/25/19 18:35 Hydromorphone 10 Mg/50 Ml-Ns NUCLEAR EQUIPMENT DESIGN ENGINEER 12/02/19 10:42 10 mg NUCLEAR EQUIPMENT DESIGN ENGINEER JUSTEN Administration Protocol Lactated Ringer's 1,000 mls @ 125 mls/hr 11/25/19 17:04 11/26/19 09:10 Lactated Ringers Solution IV 125 mls/hr ASDIR JUSTEN Administration Cefazolin Sodium 1 gm/ 50 mls @ 100 mls/hr 11/25/19 22:00 11/26/19 05:56 Dextrose IVPB 100 mls/hr Q8H JUSTEN Administration Non-Formulary Medication 1 each 11/25/19 22:00 11/25/19 22:11 Non-Formulary Med PO Not Given HS JUSTEN Ondansetron HCl 4 mg 11/26/19 10:53 11/26/19 11:30 Zofran Injection IVPUSH 4 mg Q6H PRN Administration NAUSEA Polyethylene Glycol 17 gm 11/25/19 17:04 Miralax (For Daily Use) - PO DAILY PRN CONSTIPATION Senna 1 tab 11/25/19 22:00 11/25/19 22:11 Senna - PO Not Given HS JUSTEN Simethicone 80 mg 11/25/19 17:04 Mylicon - PO Q4H PRN GAS ASSESSMENT/PLAN: Patient is a 59 year old female with history of chronic back pain, hyperlipidemia presents with worsening paresthesias of the right arm and now with generalized weakness now affecting her lower extremities as well. Radiculopathy POD #1 s/p C4,C5, C6 corpectomy with cage and fusion of C3-C7 with pedicle screws. Posterior lamiectomy decompression of C2 through 7 with pedicle screws. 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 -Neurosurgery consult (Dr. Massey) appreciated. -Cefazolin 1 gram IV Q 8 hours x24 hours postoperatively. -Hydromorphone NUCLEAR EQUIPMENT DESIGN ENGINEER, Tylenol, Gabapentin for pain control. Chest pain, Bradycardia -Cardiology consult appreciated for cardiac clearance -Transthoracic ECHO reveals, EF 65%. Repeat EKG did not shows sings of prior septal DC -Patient noted to have chest pain postoperatively. Troponin negative and EKG without acute changes. Acute blood loss anemia -Hgb 9.0/ Hct 26.3 (Hgb 13 upon admission). -Currently patient hemodynamcially stable, receiving IV lactated ringer's -Follow repeat Hgb in afternoon. Transfuse if less than 8/ patient symptomatic. HLD -Continue home Simvastatin -Hold ASA mitchell-procedurally. Resume once clinically appropriate. FEN -IV Lactated Ringers at 125mL/ hour -Follow BMP -Soft diet Prophylaxis Heparin 5000units subq TID Disposition -Continue care in medical- surgical floor. Visit type - Emergency Visit Emergency Visit: Yes ED Registration Date: 11/22/19 Care time: The patient presented to the Emergency Department on the above date and was hospitalized for further evaluation of their emergent condition. - New Patient This patient is new to me today: Yes Date on this admission: 11/26/19 - Critical Care Critical Care patient: No - Discharge Referral Referred to [facility] Med P.C.: No ATTENDING PHYSICIAN STATEMENT I saw and evaluated the patient. I reviewed the resident's note and discussed the case with the resident. I agree with the resident's findings and plan as documented. SUBJECTIVE: OBJECTIVE: ASSESSMENT AND PLAN:
[2019-11-26 17:27] LABS: HEMATOCRIT 25.7 % (32.4-45.2); HEMOGLOBIN 8.7 GM/dL (10.7-15.3); MCH 31.3 pg (25.7-33.7); MEAN PLT VOLUME 9.9 fl (7.5-11.1); PLATELET COUNT 79 K/MM3 (134-434); RBC 2.79 M/mm3 (3.60-5.2); WHITE BLOOD COUNT 9.8 K/mm3 (4.0-10.0)
[2019-11-26] MEDS: HYDROmorphone *PCA* 10MG/50ML DISP.SYRIN PCA SCH (19:01)
[2019-11-26] MEDS: SENNOSIDES 8.6MG TABLET (FP) PO SCH (22:54)
[2019-11-26] MEDS: NON-FORMULARY MED PO SCH (22:54)
[2019-11-26] MEDS: GABAPENTIN 300 MG CAPSULE PO SCH (22:54)
[2019-11-26] MEDS ORDERED: PT OWN MED DRAWER 7, Y5N ONE (23:00)
[2019-11-27] MEDS ORDERED: ceFAZolin SODIUM 1 GM VIAL ONE ×3 (07:13→22:56)
[2019-11-27] MEDS ORDERED: DEXTROSE 5%-WATER - 50 ML IVPB ONE ×3 (07:13→22:57)
[2019-11-27] MEDS: DOCUSATE SODIUM 100 MG CAPSULE (FP) PO SCH ×3 (07:21→23:02)
[2019-11-27] MEDS: CEFAZOLIN 1 GM in DEXTROSE 5%-WATER - 50 ML IVPB SCH ×3 (07:21→23:01)
[2019-11-27] MEDS: HEPARIN NA (PORCINE) 5,000 UNITS/ML 1ML VIAL SQ SCH ×2 (07:21→15:12)
[2019-11-27] MEDS: FERROUS SO4 325 MG TABLET (FP) PO SCH (10:59)
[2019-11-27] MEDS: FOLIC ACID 1 MG TABLET (FP) PO SCH (10:59)
--- NOTE | 2019-11-27 12:28 | PN ---
Teaching Attending Note Name of Resident: James Peter ATTENDING PHYSICIAN STATEMENT I saw and evaluated the patient. I reviewed the resident's note and discussed the case with the resident. I agree with the resident's findings and plan as documented. SUBJECTIVE: Seen and examined at bedside. Patient reports still having significant pain while walking with PT but is slightly improved since yesterday. Pending follow- up CBC to assess degree of blood loss Last Vital Signs Temp Pulse Resp BP Pulse Ox 98.7 F 67 18 124/62 99 11/27/19 10:56 11/27/19 10:56 11/27/19 10:56 11/27/19 10:56 11/27/19 10:56 PE: Per resident note Labs/Imaging: reviewed ASSESSMENT/PLAN 59-year-old female with history of hyperlipidemia, spinal stenosis presents with worsening paresthesias of the right arm and paresthesias in the lower extremities. 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 Patient is RCRI 0 there is minimal risk for a moderate risk procedure. Patient is medically cleared for the OR pending cardiac clearance in the setting of sinus bradycardia. #Progressive cervical myelopathy PO day #2 surgical intervention -surgery on board: appreciate recs #Acute blood loss anemia Patient currently hemodynamically stable on fluids. On my exam blood pressure 124/50 with heart rate of 57. f/u CBC Transfuse to goal of hemoglobin of 8 or if patient becomes symptomatic #Bradycardia EKG/echo unremarkable -cards on board: appreciate recs -avoid lidocaine/toradol
--- NOTE | 2019-11-27 14:47 | PN ---
Physical Exam: SUBJECTIVE: Patient seen and examined at bedside. She endorses working with physical therapy. Denies acute complaints this morning. OBJECTIVE: Vital Signs Period Temp Pulse Resp BP Sys/Mandujano Pulse Ox Last 24 Hr 98 F-99.0 F 60-80 18-20 103-136/50-64 98-100 GENERAL: The patient is awake, alert, and fully oriented, in no acute distress. HEAD: Normocephalic, atraumatic. EYES: PERRL, extraocular movements intact, sclera anicteric, conjunctiva clear. ENT: Oropharynx clear, without erythema or exudates. Moist mucous membranes. NECK: Cervical collar in place. Supple. Negative stridor auscultated. LUNGS: Breath sounds equal, clear to auscultation bilaterally. No wheezes, no crackles. No accessory muscle use. HEART: Regular rate and rhythm. S1, S2 without murmur, rub or gallop. ABDOMEN: Soft, nondistended, nontender to light and deep palpation x4 quadrants. No rebound tenderness, no guarding. Normoactive bowel sounds x4 quadrants. No hepatosplenomegaly, no masses appreciated. EXTREMITIES: 2+ radial, dorsalis pedis pulses bilaterally. Warm, well-perfused. No lower extremity edema bilaterally. NEUROLOGICAL: Cranial nerves II through XII grossly intact. Normal speech. Right upper extremity strength 4/5, left upper extremity strength 4/5. Bilateral lower extremities strength 5/5. PSYCH: Normal mood, normal affect upon my encounter. SKIN: Warm, dry. Laboratory Results - last 24 hr 11/26/19 17:00 WBC 9.8 RBC 2.79 L Hgb 8.7 L Hct 25.7 L MCV 92.0 MCH 31.3 MCHC 34.0 RDW 15.0 Plt Count 79 L D MPV 9.9 Active Medications Generic Name Dose Route Start Last Admin Trade Name Freq PRN Reason Stop Dose Admin Acetaminophen 650 mg 11/25/19 17:04 Tylenol - PO Q4H PRN PAIN LEVEL 1-5 Benzocaine/Menthol 1 each 11/25/19 17:04 Cepacol Lozenge - MM PRN PRN SORE THROAT Docusate Sodium 100 mg 11/25/19 22:00 11/27/19 07:21 Colace - PO Not Given TID JUSTEN Famotidine 10 mg 11/25/19 17:04 Acid Shape Brick Molder PO BID PRN INDIGESTION Ferrous Sulfate 325 mg 11/26/19 08:00 11/27/19 10:59 Feosol - PO 325 mg 0800 JUSTEN Administration Folic Acid 1 mg 11/26/19 10:00 11/27/19 10:59 Folic Acid - PO 1 mg DAILY JUSTEN Administration Gabapentin 600 mg 11/25/19 22:00 11/26/19 22:54 Neurontin - PO 600 mg HS JUSTEN Administration Heparin Sodium (Porcine) 5,000 unit 11/26/19 09:00 11/27/19 07:21 Heparin - SQ 5,000 unit TID JUSTEN Administration Hydromorphone HCl 10 mg 11/25/19 17:04 11/26/19 19:01 Hydromorphone 10 Mg/50 Ml-Ns ORTHOTIST OR PROSTHETIST 12/02/19 10:42 10 mg ORTHOTIST OR PROSTHETIST JUSTEN Administration Protocol Cefazolin Sodium 1 gm/ 50 mls @ 100 mls/hr 11/25/19 22:00 11/27/19 07:21 Dextrose IVPB 100 mls/hr Q8H JUSTEN Administration Non-Formulary Medication 1 each 11/25/19 22:00 11/26/19 22:54 Non-Formulary Med PO Not Given HS JUSTEN Ondansetron HCl 4 mg 11/26/19 10:53 11/26/19 11:30 Zofran Injection IVPUSH 4 mg Q6H PRN Administration NAUSEA Polyethylene Glycol 17 gm 11/25/19 17:04 Miralax (For Daily Use) - PO DAILY PRN CONSTIPATION Senna 1 tab 11/25/19 22:00 11/26/19 22:54 Senna - PO Not Given HS [facility] Simethicone 80 mg 11/25/19 17:04 Mylicon - PO Q4H PRN GAS ASSESSMENT/PLAN: Patient is a 59 year old female with history of chronic back pain, hyperli pidemia presents with worsening paresthesias of the right arm and now with generalized weakness now affecting her lower extremities as well. Radiculopathy POD #2 s/p C4,C5, C6 corpectomy with cage and fusion of C3-C7 with pedicle screws. Posterior lamiectomy decompression of C2 through 7 with pedicle screws. 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 -Neurosurgery consult (Dr. Massey) appreciated. -Cefazolin 1 gram IV Q 8 hours x24 hours postoperatively. Completed course. -Hydromorphone ORTHOTIST OR PROSTHETIST, Tylenol, Gabapentin for pain control. Chest pain, Bradycardia -Cardiology consult appreciated for cardiac clearance -Transthoracic ECHO reveals, EF 65%. Repeat EKG did not shows sings of prior septal ME -Patient noted to have chest pain postoperatively. Troponin negative and EKG without acute changes. Acute blood loss anemia -Hgb 8.0/ Hct 23.6 (Hgb 13 upon admission). Upon numerous encounter throughout the day, patient awake, conversative, without symptoms. -Currently patient hemodynamcially stable, receiving IV lactated ringer's -Follow repeat Hgb in AM. Transfuse if less than 8/ patient symptomatic (patient expresses concern over further blood transfusion) HLD -Continue home Simvastatin -Hold ASA mitchell-procedurally. Resume once clinically appropriate. FEN -IV Lactated Ringers at 125mL/ hour -Follow BMP -Soft diet Prophylaxis SCDs bilateral lower extremities in setting of anemia, thrombocytopenia. Disposition -Continue care in medical- surgical floor. Visit type - Emergency Visit Emergency Visit: Yes ED Registration Date: 11/22/19 Care time: The patient presented to the Emergency Department on the above date and was hospitalized for further evaluation of their emergent condition. - New Patient This patient is new to me today: Yes Date on this admission: 11/27/19 - Critical Care Critical Care patient: No - Discharge Referral Referred to [facility] Med P.C.: No ATTENDING PHYSICIAN STATEMENT I saw and evaluated the patient. I reviewed the resident's note and discussed the case with the resident. I agree with the resident's findings and plan as documented. SUBJECTIVE: OBJECTIVE: ASSESSMENT AND PLAN:
[2019-11-27 15:14] LABS: HEMATOCRIT 23.6 % (32.4-45.2); MCH 31.2 pg (25.7-33.7); MEAN CELL VOLUME 91.6 fl (80-96); MEAN PLT VOLUME 10.1 fl (7.5-11.1); PLATELET COUNT 65 K/MM3 (134-434); RBC 2.57 M/mm3 (3.60-5.2); RDW 14.7 % (11.6-15.6); WHITE BLOOD COUNT 7.6 K/mm3 (4.0-10.0)
--- NOTE | 2019-11-27 18:24 | PN ---
Progress Note (short form) - Note Progress Note: POD2 s/p cervical corpectomy and reconstruction. Pt will with significant pain, that she says is well-controlled on ZINC MINER BLASTING. Will continue for now
[2019-11-27] MEDS: HYDROmorphone *PCA* 10MG/50ML DISP.SYRIN PCA SCH (19:31)
[2019-11-27] MEDS ORDERED: PT OWN MED DRAWER 7, Y5N ONE (22:56)
[2019-11-27] MEDS: GABAPENTIN 300 MG CAPSULE PO SCH (23:02)
[2019-11-27] MEDS: NON-FORMULARY MED PO SCH (23:02)
[2019-11-27] MEDS: SENNOSIDES 8.6MG TABLET (FP) PO SCH (23:03)
[2019-11-28] MEDS: CEFAZOLIN 1 GM in DEXTROSE 5%-WATER - 50 ML IVPB SCH ×2 (07:26→14:52)
[2019-11-28] MEDS: DOCUSATE SODIUM 100 MG CAPSULE (FP) PO SCH ×3 (07:26→22:03)
[2019-11-28] MEDS ORDERED: DEXTROSE 5%-WATER - 50 ML IVPB ONE ×2 (07:28→14:46)
[2019-11-28] MEDS ORDERED: ceFAZolin SODIUM 1 GM VIAL ONE ×2 (07:28→14:46)
--- NOTE | 2019-11-28 07:58 | PN ---
Progress Note, Physician History of Present Illness: 59-year-old female with history of hyperlipidemia, spinal stenosis presents with worsening paresthesias of the right arm and paresthesias in the lower extremities. 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 - Current Medication List Current Medications: Active Medications Acetaminophen (Tylenol -) 650 mg PO Q4H PRN PRN Reason: PAIN LEVEL 1-5 Benzocaine/Menthol (Cepacol Lozenge -) 1 each MM PRN PRN PRN Reason: SORE THROAT Docusate Sodium (Colace -) 100 mg PO TID [facility] Last Admin: 11/28/19 07:26 Dose: Not Given Documented by: Famotidine (Acid Gasoline Truck Operator) 10 mg PO BID PRN PRN Reason: INDIGESTION Ferrous Sulfate (Feosol -) 325 mg PO 0800 [facility] Last Admin: 11/27/19 10:59 Dose: 325 mg Documented by: Folic Acid (Folic Acid -) 1 mg PO DAILY [facility] Last Admin: 11/27/19 10:59 Dose: 1 mg Documented by: Gabapentin (Neurontin -) 600 mg PO [facility] Last Admin: 11/27/19 23:02 Dose: 600 mg Documented by: Hydromorphone HCl (Hydromorphone 10 Mg/50 Ml-Ns) 10 mg CONTENT WRITER CONTENT WRITER [facility]; Protocol Stop: 12/02/19 10:42 Last Admin: 11/27/19 19:31 Dose: 10 mg Documented by: Cefazolin Sodium 1 gm/ (Dextrose) 50 mls @ 100 mls/hr IVPB Q8H [facility] Last Admin: 11/28/19 07:26 Dose: 100 mls/hr Documented by: Non-Formulary Medication (Non-Formulary Med) 1 each PO [facility] Last Admin: 11/27/19 23:02 Dose: Not Given Documented by: Ondansetron HCl (Zofran Injection) 4 mg IVPUSH Q6H PRN PRN Reason: NAUSEA Last Admin: 11/26/19 11:30 Dose: 4 mg Documented by: Polyethylene Glycol (Miralax (For Daily Use) -) 17 gm PO DAILY PRN PRN Reason: CONSTIPATION Senna (Senna -) 1 tab PO [facility] Last Admin: 11/27/19 23:03 Dose: Not Given Documented by: Silver Sulfadiazine (Silvadene -) 1 applic TP DAILY JUSTEN Simethicone (Mylicon -) 80 mg PO Q4H PRN PRN Reason: GAS - Objective Vital Signs: Vital Signs Temperature 98.6 F 11/28/19 02:00 Pulse Rate 78 11/28/19 06:00 Respiratory Rate 18 11/28/19 06:00 Blood Pressure 111/46 L 11/28/19 06:00 O2 Sat by Pulse Oximetry (%) 97 11/27/19 21:00 Eyes: Yes: WNL, Conjunctiva Clear, EOM Intact HENT: Yes: WNL, Atraumatic, Normocephalic Neck: Yes: WNL, Supple, Trachea Midline Cardiovascular: Yes: WNL, Regular Rate and Rhythm Respiratory: Yes: WNL, Regular, CTA Bilaterally Gastrointestinal: Yes: WNL, Normal Bowel Sounds Genitourinary: Yes: WNL Musculoskeletal: Yes: WNL Extremities: Yes: WNL Edema: No Integumentary: Yes: WNL Neurological: Yes: WNL, Alert, Oriented ...Motor Strength: WNL Psychiatric: Yes: WNL Labs: INR, PTT INR 1.10 (0.83-1.09) H 11/23/19 06:05 Assessment/Plan Ms Miller is a 59-year-old female with history of hyperlipidemia, spinal stenosis, who presents with worsening paresthesias of the right arm and paresthesias in the lower extremities. 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 Initial EKG: S. Boo at 49 bpm; new septal UT; repeat EKG notes marked sinus bradycardia of 43 bpm, with septal UT no longer present. ECHO: normal LVEF CXR: no acute pathology; stable rt lung nodule Total cholesterol: 157 mg/dL. TSH WNL acute anemia Plan: s/p cervical spine surgery. Post-op, avoid lidocaine and toradol, both of which may contribute to bradycardia. Presently, HR 72 bpm and regular. Pain management. Maintain fluids, f/u Hb post-op (on Feosol); f/u BP and HR.
[2019-11-28 08:00] LABS: HEMATOCRIT 22.7 % (32.4-45.2); HEMOGLOBIN 7.7 GM/dL (10.7-15.3); MCH 30.8 pg (25.7-33.7); MCHC 33.7 g/dl (32.0-36.0); MEAN CELL VOLUME 91.2 fl (80-96); MEAN PLT VOLUME 10.6 fl (7.5-11.1); PLATELET COUNT 65 K/MM3 (134-434); RBC 2.49 M/mm3 (3.60-5.2); RDW 14.5 % (11.6-15.6); WHITE BLOOD COUNT 5.5 K/mm3 (4.0-10.0)
[2019-11-28 08:36] LABS: BLOOD UREA NITROGEN 7.8 mg/dL (7-18); CALCIUM 7.9 mg/dL (8.5-10.1); CREATININE 0.6 mg/dL (0.55-1.3); MAGNESIUM 2.2 mg/dL (1.8-2.4); PHOSPHOROUS 2.6 mg/dL (2.5-4.9)
--- NOTE | 2019-11-28 08:39 | PN ---
Progress Note, Physician Chief Complaint: Pt A&Ox3; no chest pain or dyspnea; +neck brace makes her uncomfortable; less numbness in extremities. History of Present Illness: Ms. Flood is a 59 year old female (b. Justo) with a significant past medical history of cervical spine stenosis and arthropathy, who presents to the ED with neck pain, difficulty walking, and pain x1 month. Patient describes her neck pain as a "burning sensation" which radiates down to her right arm causing weakness and her knee pain causing her to have unsteady gait. Patient disclosed she attempted to self medicate with ibuprofen prior to ED arrival but experienced no relief. Patient reports falling 2 days ago. Patient said she is supposed to get an MRI and see neurologist next week. Pt denies hx HTN or DM; denies hyperlipidemia. Despite spine problems, she walks for up to an hour nearly every day. 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 - Current Medication List Current Medications: Active Medications Acetaminophen (Tylenol -) 650 mg PO Q4H PRN PRN Reason: PAIN LEVEL 1-5 Benzocaine/Menthol (Cepacol Lozenge -) 1 each MM PRN PRN PRN Reason: SORE THROAT Docusate Sodium (Colace -) 100 mg PO TID [facility] Last Admin: 11/28/19 07:26 Dose: Not Given Documented by: Famotidine (Acid Casualty Underwriter) 10 mg PO BID PRN PRN Reason: INDIGESTION Ferrous Sulfate (Feosol -) 325 mg PO 0800 [facility] Last Admin: 11/27/19 10:59 Dose: 325 mg Documented by: Folic Acid (Folic Acid -) 1 mg PO DAILY [facility] Last Admin: 11/27/19 10:59 Dose: 1 mg Documented by: Gabapentin (Neurontin -) 600 mg PO HS [facility] Last Admin: 11/27/19 23:02 Dose: 600 mg Documented by: Hydromorphone HCl (Hydromorphone 10 Mg/50 Ml-Ns) 10 mg PARAFFIN PLANT SWEATER OPERATOR PARAFFIN PLANT SWEATER OPERATOR [facility]; Protocol Stop: 12/02/19 10:42 Last Admin: 11/27/19 19:31 Dose: 10 mg Documented by: Cefazolin Sodium 1 gm/ (Dextrose) 50 mls @ 100 mls/hr IVPB Q8H [facility] Last Admin: 11/28/19 07:26 Dose: 100 mls/hr Documented by: Non-Formulary Medication (Non-Formulary Med) 1 each PO HS JUSTEN Last Admin: 11/27/19 23:02 Dose: Not Given Documented by: Ondansetron HCl (Zofran Injection) 4 mg IVPUSH Q6H PRN PRN Reason: NAUSEA Last Admin: 11/26/19 11:30 Dose: 4 mg Documented by: Polyethylene Glycol (Miralax (For Daily Use) -) 17 gm PO DAILY PRN PRN Reason: CONSTIPATION Senna (Senna -) 1 tab PO HS JUSTEN Last Admin: 11/27/19 23:03 Dose: Not Given Documented by: Silver Sulfadiazine (Silvadene -) 1 applic TP DAILY JUSTEN Simethicone (Mylicon -) 80 mg PO Q4H PRN PRN Reason: GAS - Objective Vital Signs: Vital Signs Temperature 98.6 F 11/28/19 02:00 Pulse Rate 78 11/28/19 06:00 Respiratory Rate 18 11/28/19 06:00 Blood Pressure 111/46 L 11/28/19 06:00 O2 Sat by Pulse Oximetry (%) 97 11/27/19 21:00 Constitutional: Yes: Calm Eyes: Yes: WNL HENT: Yes: WNL Neck: Yes: WNL Cardiovascular: Yes: S1, S2 Respiratory: Yes: WNL Gastrointestinal: Yes: Soft ...Rectal Exam: Yes: Deferred Genitourinary: No: Anuria Breast(s): Yes: WNL Musculoskeletal: Yes: Back Pain, Muscle Weakness Extremities: Yes: Other (decreased ROM arms and neck) Edema: No Peripheral Pulses WNL: Yes Integumentary: Yes: Incision Wound/Incision: Yes: Clean/Dry Neurological: Yes: Alert, Oriented, Numbness, Weakness Psychiatric: Yes: Alert, Oriented Labs: CBC, BMP 11/28/19 06:08 11/28/19 06:08 INR, PTT INR 1.10 (0.83-1.09) H 11/23/19 06:05 Abnormal Lab Results 11/25/19 11/28/19 11/28/19 08:02 11:55 19:45 RBC 2.82 L Hgb 8.8 L Hct 25.6 L Plt Count 71 L Anion Gap Creatinine Calcium Crossmatch See Detail Crossmatch IS Only See Detail 11/29/19 11/29/19 10:40 10:40 RBC 2.97 L Hgb 9.3 L Hct 26.8 L Plt Count 90 L D Anion Gap 6 L Creatinine 0.5 L Calcium 8.2 L Crossmatch Crossmatch IS Only - ....Imaging Chest X-ray: Image Reviewed EKG: Image Reviewed Assessment/Plan Ms Miller is a 59-year-old female with history of hyperlipidemia, spinal stenosis, who presents with worsening paresthesias of the right arm and paresthesias in the lower extremities. 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 Initial EKG: S. Boo at 49 bpm; new septal VA; repeat EKG notes marked sinus bradycardia of 43 bpm, with septal VA no longer present. ECHO: normal LVEF CXR: no acute pathology; stable rt lung nodule Total cholesterol: 157 mg/dL. TSH WNL acute anemia Plan: s/p cervical spine surgery. Post-op, avoid lidocaine and toradol, both of which may contribute to bradycardia. Presently, HR 72 bpm and regular. Pain management. Maintain fluids, f/u Hb post-op (on Feosol); f/u BP and HR.
[2019-11-28] MEDS: FOLIC ACID 1 MG TABLET (FP) PO SCH (09:21)
[2019-11-28] MEDS: FERROUS SO4 325 MG TABLET (FP) PO SCH (09:21)
[2019-11-28] MEDS: SILVER SULFADIAZINE 1% TOP CREAM 50 GM JAR TP SCH ×2 (09:21→09:47)
[2019-11-28] MEDS ORDERED: oxyCODONE HCL 5 MG TABLET PO PRN (10:18)
[2019-11-28] MEDS ORDERED: MORPHINE SULFATE 2 MG/ML VIAL IVPUSH PRN (10:19)
--- NOTE | 2019-11-28 11:16 | EKG ---
Test Reason : Blood Pressure : / mmHG Vent. Rate : 057 BPM Atrial Rate : 057 BPM P-R Int : 136 ms QRS Dur : 106 ms QT Int : 408 ms P-R-T Axes : 038 -15 -02 degrees QTc Int : 397 ms SINUS BRADYCARDIA MINIMAL VOLTAGE CRITERIA FOR LVH, MAY BE NORMAL VARIANT NONSPECIFIC T WAVE ABNORMALITY ABNORMAL ECG Confirmed by DIANA DONALDSON MD ([id number]) on 11/28/2019 11:15:59 AM Referred By: MARYA BRISENO DR Confirmed By:DIANA DONALDSON MD
--- NOTE | 2019-11-28 13:10 | PN ---
Teaching Attending Note Name of Resident: James Peter ATTENDING PHYSICIAN STATEMENT I saw and evaluated the patient. I reviewed the resident's note and discussed the case with the resident. I agree with the resident's findings and plan as documented. SUBJECTIVE: Seen and examined at bedside. Hemoglobin continues to drop. Will transfuse 1 unit. Pain is improved. Patient reports some dizziness and feeling of generalized weakness. Last Vital Signs Temp Pulse Resp BP Pulse Ox 98.6 F 78 18 111/46 L 97 11/28/19 02:00 11/28/19 06:00 11/28/19 06:00 11/28/19 06:00 11/27/19 21:00 PE: Per resident note Labs/Imaging: reviewed ASSESSMENT/PLAN 59-year-old female with history of hyperlipidemia, spinal stenosis presents with worsening paresthesias of the right arm and paresthesias in the lower extremities. 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 Patient is RCRI 0 there is minimal risk for a moderate risk procedure. Patient is medically cleared for the OR pending cardiac clearance in the setting of sinus bradycardia. #Progressive cervical myelopathy PO day #2 surgical intervention -surgery on board: appreciate recs #Symptomatic Acute blood loss anemia Patient currently hemodynamically stable on fluids. Reports dizziness while ambulating and feeling of generalized weakness. f/u CBC transfuse 1 unit -Transfuse to goal of hemoglobin of 8 or if patient becomes symptomatic #Bradycardia EKG/echo unremarkable -cards on board: appreciate recs -avoid lidocaine/toradol
--- NOTE | 2019-11-28 13:41 | DS ---
"Physical Exam: SUBJECTIVE: Patient seen and examined OBJECTIVE: Vital Signs Period Temp Pulse Resp BP Sys/Mandujano Pulse Ox Last 24 Hr 98.6 F-99.7 F 65-79 18-20 104-129/46-70 97-99 PHYSICAL EXAM GENERAL: The patient is awake, alert, and fully oriented, in no acute distress. HEAD: Normal with no signs of trauma. EYES: PERRL, extraocular movements intact, sclera anicteric, conjunctiva clear. ENT: Ears normal, nares patent, oropharynx clear without exudates, moist mucous membranes. NECK: Trachea midline, full range of motion, supple. LUNGS: Breath sounds equal, clear to auscultation bilaterally, no wheezes, no crackles, no accessory muscle use. HEART: Regular rate and rhythm, S1, S2 without murmur, rub or gallop. ABDOMEN: Soft, nontender, nondistended, normoactive bowel sounds, no guarding, no rebound, no hepatosplenomegaly, no masses. EXTREMITIES: 2+ pulses, warm, well-perfused, no edema. NEUROLOGICAL: Cranial nerves II through XII grossly intact. Normal speech, gait not observed. PSYCH: Normal mood, normal affect. SKIN: Warm, dry, normal turgor, no rashes or lesions noted. LABS Laboratory Results - last 24 hr 11/25/19 11/27/19 11/28/19 08:02 14:45 06:08 WBC 7.6 RBC 2.57 L Hgb 8.0 L Hct 23.6 L MCV 91.6 MCH 31.2 MCHC 34.0 RDW 14.7 Plt Count 65 L MPV 10.1 Sodium 142 Potassium 4.0 Chloride 107 Carbon Dioxide 30 Anion Gap 5 L BUN 7.8 Creatinine 0.6 Est GFR (CKD-EPI)AfAm 114.82 Est GFR (CKD-EPI)NonAf 99.07 Random Glucose 91 Calcium 7.9 L Phosphorus 2.6 Magnesium 2.2 Blood Type Antibody Screen Crossmatch Crossmatch IS Only See Detail 11/28/19 11/28/19 06:08 11:55 WBC 5.5 RBC 2.49 L Hgb 7.7 L Hct 22.7 L MCV 91.2 MCH 30.8 MCHC 33.7 RDW 14.5 Plt Count 65 L MPV 10.6 Sodium Potassium Chloride Carbon Dioxide Anion Gap BUN Creatinine Est GFR (CKD-EPI)AfAm Est GFR (CKD-EPI)NonAf Random Glucose Calcium Phosphorus Magnesium Blood Type B POSITIVE Antibody Screen Negative Crossmatch See Detail Crossmatch IS Only HOSPITAL COURSE: Date of Admission:11/22/19 Date of Discharge: 11/28/19 Discharge Summary Problems reviewed: Yes Reason For Visit: RADICULOPATHY Current Active Problems Cervical stenosis of spinal canal (Acute) Condition: Stable - Instructions Diet, Activity, Other Instructions: Post Operative Instructions Physical Activity Resume your normal everyday activity as tolerated. No heavy lifting or exercise until seen by your surgeon. You may walk unlimited amounts and climb stairs. You may resume driving the car when you feel safe and comfortable behind the wheel and you are no longer wearing your brace. Do not operate a vehicle while taking narcotic medication. Brace If you had neck surgery, wear surgical collar 23 hr/day. Remove to shower only. Wound Care Keep your incision clean, dry and covered at all times. Apply an occlusive dressing (Saran wrap or Tegaderm) when showering to avoid getting your incision wet. Do not submerge incision or apply ointments or creams. The jatin will be removed in the office in 10-14 days post-op. Diet There are no dietary restrictions. Eat healthy, high-fiber foods. Drink 6-8 glasses of liquid each day. This will assist in keeping your bowels regular. Pain Management You may take Tylenol or acetaminophen. Any pain prescription medication ordered should be taken as prescribed for moderate to severe pain. Avoid any ibuprofen (Motrin, Advil, Aleve, Toradol, etc) for 3 months unless otherwise discussed with your surgeon. Call Dr Pruitt for any of the following: Severe pain not relieved by medication Fever of 101 or higher Excessive bleeding or drainage on dressing Inability to urinate Any chest pain or shortness of breath, seek Emergency Care. Call the office to confirm a post-operative appointment for 2-3 weeks post-op Cortez Massey MD [facility] [address] [place] [address] This report was requested by: Eri Rice | Reference #: [id number] Referrals: Jose Rafael Meade [Primary Care Provider] - - Home Medications Comprehensive Discharge Medication List: Ambulatory Orders Aspirin 81 mg PO DAILY 11/23/19 Gabapentin 600 mg PO HS 11/23/19 Ibuprofen 800 mg PO PRN PRN 11/23/19 Simvastatin 40 mg PO HS 11/23/19 - Discharge Referral Referred to [facility] No ATTENDING PHYSICIAN STATEMENT I saw and evaluated the patient. I reviewed the resident's note and discussed the case with the resident. I agree with the resident's findings and plan as documented. SUBJECTIVE: OBJECTIVE: ASSESSMENT AND PLAN:"
--- NOTE | 2019-11-28 14:51 | PN ---
Progress Note (short form) - Note Progress Note: Surgery POD #3 C4, 5, 6 corpectomy with Cage and fusion of C3-C7 with pedicle screws. Posterior lamiectomy decompression of C2-thru T7 with pedicle screws. Patient seen and examined on AM rounds c/o dizziness, weakness and fatigue. 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 She failed her trial of void yesterday and had the andrade reinserted. She is tolerating her diet and denies any CP, SOB, N/V, Fever or chills. Vital Signs Temp 98.6 F 11/28/19 10:00 Pulse 76 11/28/19 10:00 Resp 20 11/28/19 10:00 BP 130/62 11/28/19 10:00 Pulse Ox 97 11/27/19 21:00 Intake & Output 11/27/19 11/28/19 11/28/19 23:59 11:59 23:59 Intake Total 250 360 Output Total 80 1670 Balance 170 -1310 Intake: IV 120 Lactated Ringers Solution 120 1,000 ml @ 125 mls/hr IV ASDIR JUSTEN Rx#: [id number] IVPB 50 Oral 200 240 Output: Drainage 80 120 #2 Drain 80 120 Urine 1550 Andrade 1550 Other: Voiding Method Bedpan Toilet # Unmeasured Voids Andrade 2 Bowel Movement No CBC, BMP 11/28/19 06:08 11/28/19 06:08 PE: A&Ox3, NAD Unlabored resp on RA Anterior incision: incision c/d/i, drain ostomy clean and dry, trachea midline with no midline shift. Surrounding tissue with no tracking erythema or significant edema. Posterior incision: dressing c/d/i with drain secure and in good position. surrounding tissue with no tracking erythema, edema or evidence of collection or active d/c, drain output @120cc/11hrs B/L UE: 1/5 social media designer,biceps and triceps on left, 3/5 social media designer, biceps and triceps on right. B/L LE compartments soft, supple and non-tender with +DP pulses. Problem List - Problems (1) Cervical stenosis of spinal canal Assessment/Plan: POD #3 ACDF C4-C6, with posterior decompression and fusion C2-T1. Patient stable after experiencing some post procedure chest pain in the setting of acute blood loss anemia and transfusion of 1 unit PRBC. This morning she is feeling general malaise, weakness and dizziness. 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 Code(s): M48.02 - SPINAL STENOSIS, CERVICAL REGION
--- NOTE | 2019-11-28 16:14 | PN ---
Physical Exam: SUBJECTIVE: Patient seen and examined at bedside. She endorses improvement in her upper extremities strength. Denies acute complaints today. OBJECTIVE: Vital Signs Period Temp Pulse Resp BP Sys/Mandujano Pulse Ox Last 24 Hr 98.6 F-99.3 F 65-79 18-20 111-130/46-70 97-99 GENERAL: The patient is awake, alert, and fully oriented, in no acute distress. HEAD: Normocephalic, atraumatic. EYES: PERRL, extraocular movements intact, sclera anicteric, conjunctiva clear. ENT: Oropharynx clear, without erythema or exudates. Moist mucous membranes. NECK: Cervical collar in place. Supple. Negative stridor auscultated. LUNGS: Breath sounds equal, clear to auscultation bilaterally. No wheezes, no crackles. No accessory muscle use. HEART: Regular rate and rhythm. S1, S2 without murmur, rub or gallop. ABDOMEN: Soft, nondistended, nontender to light and deep palpation x4 quadrants. No rebound tenderness, no guarding. Normoactive bowel sounds x4 quadrants. No hepatosplenomegaly, no masses appreciated. EXTREMITIES: 2+ radial, dorsalis pedis pulses bilaterally. Warm, well-perfused. No lower extremity edema bilaterally. NEUROLOGICAL: Cranial nerves II through XII grossly intact. Normal speech. Right upper extremity strength 4/5, left upper extremity strength 4/5. Bilateral lower extremities strength 5/5. PSYCH: Normal mood, normal affect upon my encounter. SKIN: Warm, dry. Laboratory Results - last 24 hr 11/25/19 11/28/19 11/28/19 08:02 06:08 06:08 WBC 5.5 RBC 2.49 L Hgb 7.7 L Hct 22.7 L MCV 91.2 MCH 30.8 MCHC 33.7 RDW 14.5 Plt Count 65 L MPV 10.6 Sodium 142 Potassium 4.0 Chloride 107 Carbon Dioxide 30 Anion Gap 5 L BUN 7.8 Creatinine 0.6 Est GFR (CKD-EPI)AfAm 114.82 Est GFR (CKD-EPI)NonAf 99.07 Random Glucose 91 Calcium 7.9 L Phosphorus 2.6 Magnesium 2.2 Blood Type B POSITIVE Antibody Screen Negative Crossmatch Crossmatch IS Only See Detail 11/28/19 11:55 WBC RBC Hgb Hct MCV MCH MCHC RDW Plt Count MPV Sodium Potassium Chloride Carbon Dioxide Anion Gap BUN Creatinine Est GFR (CKD-EPI)AfAm Est GFR (CKD-EPI)NonAf Random Glucose Calcium Phosphorus Magnesium Blood Type B POSITIVE Antibody Screen Negative Crossmatch See Detail Crossmatch IS Only Active Medications Generic Name Dose Route Start Last Admin Trade Name Freq PRN Reason Stop Dose Admin Acetaminophen 650 mg 11/25/19 17:04 Tylenol - PO Q4H PRN PAIN LEVEL 1-5 Benzocaine/Menthol 1 each 11/25/19 17:04 Cepacol Lozenge - MM PRN PRN SORE THROAT Docusate Sodium 100 mg 11/25/19 22:00 11/28/19 14:52 Colace - PO 100 mg TID JUSTEN Administration Famotidine 10 mg 11/25/19 17:04 Acid Infection Control Manager PO BID PRN INDIGESTION Ferrous Sulfate 325 mg 11/26/19 08:00 11/28/19 09:21 Feosol - PO 325 mg 0800 JUSTEN Administration Folic Acid 1 mg 11/26/19 10:00 11/28/19 09:21 Folic Acid - PO 1 mg DAILY JUSTEN Administration Gabapentin 600 mg 11/25/19 22:00 11/27/19 23:02 Neurontin - PO 600 mg HS JUSTEN Administration Cefazolin Sodium 1 gm/ 50 mls @ 100 mls/hr 11/25/19 22:00 11/28/19 14:52 Dextrose IVPB 100 mls/hr Q8H JUSTEN Administration Morphine Sulfate 2 mg 11/28/19 10:19 Morphine Sulfate IVPUSH Q4H PRN breakthrough pain Non-Formulary Medication 1 each 11/25/19 22:00 11/27/19 23:02 Non-Formulary Med PO Not Given HS JUSTEN Ondansetron HCl 4 mg 11/26/19 10:53 11/26/19 11:30 Zofran Injection IVPUSH 4 mg Q6H PRN Administration NAUSEA Oxycodone HCl 5 mg 11/28/19 10:18 Roxicodone - PO Q4H PRN PAIN LEVEL 1-5 Oxycodone HCl 10 mg 11/28/19 10:18 Roxicodone - PO Q4H PRN PAIN LEVEL 6-10 Polyethylene Glycol 17 gm 11/25/19 17:04 Miralax (For Daily Use) - PO DAILY PRN CONSTIPATION Senna 1 tab 11/25/19 22:00 11/27/19 23:03 Senna - PO Not Given HS JUSTEN Silver Sulfadiazine 1 applic 11/28/19 10:00 11/28/19 09:21 Silvadene - TP 1 applic DAILY JUSTEN Administration Simethicone 80 mg 11/25/19 17:04 Mylicon - PO Q4H PRN GAS ASSESSMENT/PLAN: Patient is a 59 year old female with history of chronic back pain, hyperlipidemia presents with worsening paresthesias of the right arm and now with generalized weakness now affecting her lower extremities as well. Radiculopathy POD #3 s/p C4,C5, C6 corpectomy with cage and fusion of C3-C7 with pedicle screws. Posterior lamiectomy decompression of C2 through 7 with pedicle screws. 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 -Neurosurgery consult (Dr. Massey) appreciated. -Cefazolin 1 gram IV Q 8 hours x24 hours postoperatively. Completed course. -Hydromorphone GEODUCK DIVER, Tylenol, Gabapentin for pain control. Acute blood loss anemia -Hgb 7.7/ Hct 22.7 (Hgb 13 upon admission). Will transfuse 1 unit PRBC. Follow post- transfusion CBC> -Currently patient hemodynamcially stable, receiving IV lactated ringer's Chest pain, Bradycardia -Cardiology consult appreciated for cardiac clearance -Transthoracic ECHO reveals, EF 65%. Repeat EKG did not shows sings of prior septal SD -Patient noted to have chest pain postoperatively. Troponin negative and EKG without acute changes. HLD -Continue home Simvastatin -Hold ASA mitchell-procedurally. Resume once clinically appropriate. FEN -IV Lactated Ringers at 125mL/ hour -Follow BMP -Soft diet Prophylaxis SCDs bilateral lower extremities in setting of anemia, thrombocytopenia. Disposition -Continue care in medical- surgical floor. Visit type - Emergency Visit Emergency Visit: Yes ED Registration Date: 11/22/19 Care time: The patient presented to the Emergency Department on the above date and was hospitalized for further evaluation of their emergent condition. - New Patient This patient is new to me today: No - Critical Care Critical Care patient: No - Discharge Referral Referred to [facility] No ATTENDING PHYSICIAN STATEMENT I saw and evaluated the patient. I reviewed the resident's note and discussed the case with the resident. I agree with the resident's findings and plan as documented. SUBJECTIVE: OBJECTIVE: ASSESSMENT AND PLAN:
[2019-11-28 20:18] LABS: HEMATOCRIT 25.6 % (32.4-45.2); HEMOGLOBIN 8.8 GM/dL (10.7-15.3); MCH 31.1 pg (25.7-33.7); MCHC 34.2 g/dl (32.0-36.0); MEAN CELL VOLUME 90.7 fl (80-96); PLATELET COUNT 71 K/MM3 (134-434); RBC 2.82 M/mm3 (3.60-5.2); WHITE BLOOD COUNT 5.9 K/mm3 (4.0-10.0)
[2019-11-28] MEDS: GABAPENTIN 300 MG CAPSULE PO SCH (22:02)
[2019-11-28] MEDS: SENNOSIDES 8.6MG TABLET (FP) PO SCH (22:03)
[2019-11-28] MEDS: ACETAMINOPHEN 325 MG TABLET (FP) PO PRN (22:08)
[2019-11-28] MEDS: NON-FORMULARY MED PO SCH (22:09)
[2019-11-29] MEDS: DOCUSATE SODIUM 100 MG CAPSULE (FP) PO SCH ×3 (06:28→21:24)
[2019-11-29] MEDS: FERROUS SO4 325 MG TABLET (FP) PO SCH (08:13)
[2019-11-29] MEDS: FOLIC ACID 1 MG TABLET (FP) PO SCH (09:16)
[2019-11-29] MEDS: SILVER SULFADIAZINE 1% TOP CREAM 50 GM JAR TP SCH (09:48)
[2019-11-29] MEDS: ACETAMINOPHEN 325 MG TABLET (FP) PO PRN (10:06)
[2019-11-29 11:31] LABS: HEMATOCRIT 26.8 % (32.4-45.2); HEMOGLOBIN 9.3 GM/dL (10.7-15.3); MCH 31.3 pg (25.7-33.7); MCHC 34.7 g/dl (32.0-36.0); MEAN PLT VOLUME 10.3 fl (7.5-11.1); PLATELET COUNT 90 K/MM3 (134-434); RBC 2.97 M/mm3 (3.60-5.2); RDW 14.5 % (11.6-15.6); WHITE BLOOD COUNT 4.9 K/mm3 (4.0-10.0)
[2019-11-29 11:57] LABS: BLOOD UREA NITROGEN 8.1 mg/dL (7-18); CALCIUM 8.2 mg/dL (8.5-10.1); CREATININE 0.5 mg/dL (0.55-1.3); POTASSIUM 3.5 mmol/L (3.5-5.1)
--- NOTE | 2019-11-29 13:42 | PN ---
Progress Note, Physician Chief Complaint: Pt A&Ox3; no chest pain; c/o intense flare-op of right arm and neck pain. Earlier, she had physical therapy, and walked in the room. History of Present Illness: Ms. Flood is a 59 year old female (b. Justo) with a significant past medical history of cervical spine stenosis and arthropathy, who presents to the ED with neck pain, difficulty walking, and pain x1 month. Patient describes her neck pain as a "burning sensation" which radiates down to her right arm causing wea kness and her knee pain causing her to have unsteady gait. Patient disclosed she attempted to self medicate with ibuprofen prior to ED arrival but experienced no relief. Patient reports falling 2 days ago. Patient said she is supposed to get an MRI and see neurologist next week. - Current Medication List Current Medications: Active Medications Acetaminophen (Tylenol -) 650 mg PO Q4H PRN PRN Reason: PAIN LEVEL 1-5 Last Admin: 11/29/19 10:06 Dose: 650 mg Documented by: Benzocaine/Menthol (Cepacol Lozenge -) 1 each MM PRN PRN PRN Reason: SORE THROAT Docusate Sodium (Colace -) 100 mg PO TID [facility] Last Admin: 11/29/19 06:28 Dose: 100 mg Documented by: Famotidine (Acid Director Of Media) 10 mg PO BID PRN PRN Reason: INDIGESTION Ferrous Sulfate (Feosol -) 325 mg PO 0800 [facility] Last Admin: 11/29/19 08:13 Dose: 325 mg Documented by: Folic Acid (Folic Acid -) 1 mg PO DAILY [facility] Last Admin: 11/29/19 09:16 Dose: 1 mg Documented by: Gabapentin (Neurontin -) 600 mg PO [facility] Last Admin: 11/28/19 22:02 Dose: 600 mg Documented by: Morphine Sulfate (Morphine Sulfate) 2 mg IVPUSH Q4H PRN PRN Reason: breakthrough pain Non-Formulary Medication (Non-Formulary Med) 1 each PO HS [facility] Last Admin: 11/28/19 22:09 Dose: 1 each Documented by: Ondansetron HCl (Zofran Injection) 4 mg IVPUSH Q6H PRN PRN Reason: NAUSEA Last Admin: 11/26/19 11:30 Dose: 4 mg Documented by: Oxycodone HCl (Roxicodone -) 5 mg PO Q4H PRN PRN Reason: PAIN LEVEL 1-5 Oxycodone HCl (Roxicodone -) 10 mg PO Q4H PRN PRN Reason: PAIN LEVEL 6-10 Polyethylene Glycol (Miralax (For Daily Use) -) 17 gm PO DAILY PRN PRN Reason: CONSTIPATION Senna (Senna -) 1 tab PO HS [facility] Last Admin: 11/28/19 22:03 Dose: Not Given Documented by: Silver Sulfadiazine (Silvadene -) 1 applic TP DAILY [facility] Last Admin: 11/29/19 09:48 Dose: Not Given Documented by: Simethicone (Mylicon -) 80 mg PO Q4H PRN PRN Reason: GAS - Objective Vital Signs: Vital Signs Temperature 98.9 F 11/29/19 10:00 Pulse Rate 58 L 11/29/19 10:00 Respiratory Rate 18 11/29/19 10:00 Blood Pressure 137/66 11/29/19 10:00 O2 Sat by Pulse Oximetry (%) 98 11/29/19 10:00 Constitutional: Yes: Anxious Eyes: Yes: WNL HENT: Yes: WNL Neck: Yes: Decreased ROM, Other (neck brace) Cardiovascular: Yes: S1, S2, S4 Respiratory: Yes: WNL Gastrointestinal: Yes: WNL ...Rectal Exam: Yes: Deferred Genitourinary: No: Anuria Breast(s): Yes: WNL Musculoskeletal: Yes: Back Pain, Muscle Pain, Muscle Weakness Extremities: Yes: Other (bilateral arm pain) Edema: No Peripheral Pulses WNL: Yes Integumentary: Yes: Incision Wound/Incision: Yes: Dressing Dry and Intact Neurological: Yes: Alert, Oriented, Weakness Psychiatric: Yes: WNL Labs: CBC, BMP 11/29/19 10:40 11/29/19 10:40 INR, PTT INR 1.10 (0.83-1.09) H 11/23/19 06:05 Abnormal Lab Results 11/30/19 06:45 RBC 3.03 L Hgb 9.3 L Hct 27.4 L Plt Count 109 L - ....Imaging Chest X-ray: Image Reviewed EKG: Image Reviewed Assessment/Plan s/p cervical spine surgery Initial EKG: Polo Haddad at 49 bpm. (EKG 11/28/2019: sinus whitney 57 bpm). ECHO: normal LVEF CXR: no acute pathology; stable rt lung nodule Total cholesterol: 157 mg/dL. TSH WNL Telemetry: snus rhythm Plan: Pain management (Tylenol; morphine) Continue physical therapy as tolerated. Cardiac-kirk stable.
--- NOTE | 2019-11-29 14:01 | PN ---
Progress Note (short form) - Note Progress Note: S: No acute events overnight. Potter discontinued with patient voiding. Pain present, but tolerable. Patient able to tolerate PO and is wearing C-collar at this time. Has some parasthesias in b/l hands. Vital Signs Temperature 98.9 F 11/29/19 10:00 Pulse Rate 58 L 11/29/19 10:00 Respiratory Rate 18 11/29/19 10:00 Blood Pressure 137/66 11/29/19 10:00 O2 Sat by Pulse Oximetry (%) 98 11/29/19 10:00 PE: Gen: NAD, awake, alert, oriented x3 HEENT: NC/At, EOMI, FARHEEN, sclera anicteric, C-collar in place, MMM NECK: No drainage from incision, surgical bandage overlying, C-collar in place LUNG: CTA b/l without wheezes or rales CARD: RRR no murmurs ABD: Soft, NT/ND + BS EXT: Sensation to dull touch intact b/l, Strength 5/5 with handgrip, no focal deficits CBC, BMP 11/29/19 10:40 11/29/19 10:40 Assessment and Plan: Progressiver Cervical Myelopathy Symptomatic Acute Blood Loss Anemia Sinus Bradycardia --POD 3 today --Surgery on board and appreciated recommendations --Patient accepted to [facility], however awaiting insurance authorization --CBC today stable; post-1UPRBC yesterday 11/27 with appropriate increase --Transfusion goal 8.0 --Asymptomatic bradycardia noted on telemetry; ECG and Echo unremarkable --Avoid toradol, but otherwise continue pain mgmt Dispo: awaiting insurance authorization --> [facility]; can transfer to M/S DO Bryan Jaime
[2019-11-29 15:19] LABS: HEMATOCRIT 27.3 % (32.4-45.2); HEMOGLOBIN 9.5 GM/dL (10.7-15.3); MCH 31.5 pg (25.7-33.7); MCHC 34.7 g/dl (32.0-36.0); MEAN CELL VOLUME 90.6 fl (80-96); MEAN PLT VOLUME 10.2 fl (7.5-11.1); PLATELET COUNT 96 K/MM3 (134-434); RBC 3.02 M/mm3 (3.60-5.2); RDW 14.8 % (11.6-15.6); WHITE BLOOD COUNT 5.3 K/mm3 (4.0-10.0)
[2019-11-29] MEDS: oxyCODONE HCL 5 MG TABLET PO PRN (20:41)
[2019-11-29] MEDS: NON-FORMULARY MED PO SCH (21:23)
[2019-11-29] MEDS: GABAPENTIN 300 MG CAPSULE PO SCH (21:23)
[2019-11-29] MEDS: SENNOSIDES 8.6MG TABLET (FP) PO SCH (21:24)
[2019-11-30] MEDS: DOCUSATE SODIUM 100 MG CAPSULE (FP) PO SCH ×3 (06:22→22:54)
[2019-11-30 07:40] LABS: HEMATOCRIT 27.4 % (32.4-45.2); HEMOGLOBIN 9.3 GM/dL (10.7-15.3); MCH 30.8 pg (25.7-33.7); MCHC 34.1 g/dl (32.0-36.0); MEAN CELL VOLUME 90.5 fl (80-96); MEAN PLT VOLUME 10.3 fl (7.5-11.1); PLATELET COUNT 109 K/MM3 (134-434); RBC 3.03 M/mm3 (3.60-5.2); RDW 14.8 % (11.6-15.6); WHITE BLOOD COUNT 5.3 K/mm3 (4.0-10.0)
[2019-11-30] MEDS: FERROUS SO4 325 MG TABLET (FP) PO SCH (08:03)
[2019-11-30] MEDS: oxyCODONE HCL 5 MG TABLET PO PRN ×2 (08:30→19:50)
--- NOTE | 2019-11-30 08:55 | PN ---
Progress Note (short form) - Note Progress Note: S: No acute events overnight. Vital Signs Temperature 98.2 F 11/30/19 02:00 Pulse Rate 66 11/30/19 06:00 Respiratory Rate 18 11/30/19 06:00 Blood Pressure 120/65 11/30/19 06:00 O2 Sat by Pulse Oximetry (%) 95 11/30/19 06:00 PE: Gen: NAD, awake, alert, oriented x3 HEENT: NC/At, EOMI, FARHEEN, sclera anicteric, C-collar in place, MMM NECK: No drainage from incision, surgical bandage overlying, C-collar in place LUNG: CTA b/l without wheezes or rales CARD: RRR no murmurs ABD: Soft, NT/ND + BS EXT: Sensation to dull touch intact b/l, Strength 5/5 with handgrip, no focal deficits CBC, BMP 11/30/19 06:45 11/29/19 10:40 Assessment and Plan: Progressiver Cervical Myelopathy Symptomatic Acute Blood Loss Anemia Sinus Bradycardia --POD 4 today --Surgery on board and appreciated recommendations --Patient accepted to [facility], however awaiting insurance authorization (likely Sunday --CBC today stable; post-1UPRBC 11/27 with appropriate increase --Transfusion goal 8.0 --ECG and Echo unremarkable --Avoid toradol, but otherwise continue pain mgmt Dispo: awaiting insurance authorization --> [facility]; can transfer to [facility]
[2019-11-30] MEDS: FOLIC ACID 1 MG TABLET (FP) PO SCH (09:05)
[2019-11-30] MEDS: ACETAMINOPHEN 325 MG TABLET (FP) PO PRN (19:48)
[2019-11-30] MEDS ORDERED: PT OWN MED DRAWER 7, Y5N ONE (20:36)
[2019-11-30] MEDS: SENNOSIDES 8.6MG TABLET (FP) PO SCH (22:54)
[2019-11-30] MEDS: GABAPENTIN 300 MG CAPSULE PO SCH (22:55)
[2019-11-30] MEDS: NON-FORMULARY MED PO SCH (22:55)
[2019-12-01] MEDS: oxyCODONE HCL 5 MG TABLET PO PRN (01:22)
[2019-12-01] MEDS: ACETAMINOPHEN 325 MG TABLET (FP) PO PRN ×2 (01:23→13:00)
--- NOTE | 2019-12-01 03:20 | PN ---
Progress Note, Physician Chief Complaint: Pt A&Ox3; no chest pain; still with bilateral arm and neck pain. Moves all limbs on request; decreased ROM arms. History of Present Illness: Ms. lFood is a 59 year old female (b. Justo) with a significant past medical history of cervical spine stenosis and arthropathy, who presents to the ED with neck pain, difficulty walking, and pain x1 month. Patient describes her neck pain as a "burning sensation" which radiates down to her right arm causing weakness and her knee pain causing her to have unsteady gait. Patient disclosed she attempted to self medicate with ibuprofen prior to ED arrival but experienced no relief. Patient reports falling 2 days ago. Patient said she is supposed to get an MRI and see neurologist next week. - Current Medication List Current Medications: Active Medications Acetaminophen (Tylenol -) 650 mg PO Q4H PRN PRN Reason: PAIN LEVEL 1-5 Last Admin: 12/01/19 01:23 Dose: 650 mg Documented by: Benzocaine/Menthol (Cepacol Lozenge -) 1 each MM PRN PRN PRN Reason: SORE THROAT Docusate Sodium (Colace -) 100 mg PO TID [facility] Last Admin: 11/30/19 22:54 Dose: 100 mg Documented by: Famotidine (Acid Certified Registered Nurse Anesthetist) 10 mg PO BID PRN PRN Reason: INDIGESTION Ferrous Sulfate (Feosol -) 325 mg PO 0800 [facility] Last Admin: 11/30/19 08:03 Dose: 325 mg Documented by: Folic Acid (Folic Acid -) 1 mg PO DAILY [facility] Last Admin: 11/30/19 09:05 Dose: 1 mg Documented by: Gabapentin (Neurontin -) 600 mg PO [facility] Last Admin: 11/30/19 22:55 Dose: 600 mg Documented by: Morphine Sulfate (Morphine Sulfate) 2 mg IVPUSH Q4H PRN PRN Reason: breakthrough pain Last Admin: 11/29/19 13:42 Dose: 2 mg Documented by: Non-Formulary Medication (Non-Formulary Med) 1 each PO [facility] Last Admin: 11/30/19 22:55 Dose: 1 each Documented by: Ondansetron HCl (Zofran Injection) 4 mg IVPUSH Q6H PRN PRN Reason: NAUSEA Last Admin: 11/26/19 11:30 Dose: 4 mg Documented by: Oxycodone HCl (Roxicodone -) 5 mg PO Q4H PRN PRN Reason: PAIN LEVEL 1-5 Oxycodone HCl (Roxicodone -) 10 mg PO Q4H PRN PRN Reason: PAIN LEVEL 6-10 Last Admin: 12/01/19 01:22 Dose: 10 mg Documented by: Polyethylene Glycol (Miralax (For Daily Use) -) 17 gm PO DAILY PRN PRN Reason: CONSTIPATION Senna (Senna -) 1 tab PO HS [facility] Last Admin: 11/30/19 22:54 Dose: 1 tab Documented by: Silver Sulfadiazine (Silvadene -) 1 applic TP DAILY [facility] Last Admin: 11/29/19 09:48 Dose: Not Given Documented by: Simethicone (Mylicon -) 80 mg PO Q4H PRN PRN Reason: GAS - Objective Vital Signs: Vital Signs Temperature 99.9 F H 11/30/19 22:00 Pulse Rate 70 11/30/19 22:00 Respiratory Rate 18 11/30/19 22:00 Blood Pressure 128/78 11/30/19 22:00 O2 Sat by Pulse Oximetry (%) 100 11/30/19 22:00 Constitutional: Yes: Calm Eyes: Yes: WNL HENT: Yes: WNL Neck: Yes: WNL Cardiovascular: Yes: S1, S2, S4 Respiratory: Yes: WNL Gastrointestinal: Yes: Soft. No: Tenderness ...Rectal Exam: Yes: Deferred Genitourinary: No: Anuria Breast(s): Yes: WNL Musculoskeletal: Yes: Back Pain, Joint Stiffness, Muscle Pain Extremities: Yes: Other (bilateral arm pain) Edema: No Peripheral Pulses WNL: Yes Integumentary: Yes: Incision Wound/Incision: Yes: Dressing Dry and Intact Neurological: Yes: Alert, Oriented, Weakness Psychiatric: Yes: Alert, Oriented Labs: CBC, BMP 11/30/19 06:45 11/29/19 10:40 INR, PTT INR 1.10 (0.83-1.09) H 11/23/19 06:05 Abnormal Lab Results 11/30/19 06:45 RBC 3.03 L Hgb 9.3 L Hct 27.4 L Plt Count 109 L - ....Imaging Chest X-ray: Image Reviewed EKG: Image Reviewed Assessment/Plan s/p cervical spine surgery Initial EKG: S. Whitney at 49 bpm. (EKG 11/28/2019: sinus whitney 57 bpm). ECHO: normal LVEF CXR: no acute pathology; stable rt lung nodule Total cholesterol: 157 mg/dL. TSH WNL Telemetry: snus rhythm Plan: Pain management (Tylenol; morphine) Continue physical therapy as tolerated. Cardiac-kirk stable.
[2019-12-01 05:31] VITALS: TEMP 98
[2019-12-01] MEDS: DOCUSATE SODIUM 100 MG CAPSULE (FP) PO SCH ×2 (05:52→13:32)
[2019-12-01] MEDS: FERROUS SO4 325 MG TABLET (FP) PO SCH (08:22)
[2019-12-01 08:49] VITALS: BP 102/41; PULSE 75
[2019-12-01] MEDS: FOLIC ACID 1 MG TABLET (FP) PO SCH (09:16)
--- NOTE | 2019-12-01 10:38 | PN ---
Progress Note, Physician History of Present Illness: 59-year-old female with history of hyperlipidemia, spinal stenosis presents with worsening paresthesias of the right arm and paresthesias in the lower extremities. 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 - Current Medication List Current Medications: Active Medications Acetaminophen (Tylenol -) 650 mg PO Q4H PRN PRN Reason: PAIN LEVEL 1-5 Last Admin: 12/01/19 01:23 Dose: 650 mg Documented by: Benzocaine/Menthol (Cepacol Lozenge -) 1 each MM PRN PRN PRN Reason: SORE THROAT Docusate Sodium (Colace -) 100 mg PO TID [facility] Last Admin: 12/01/19 05:52 Dose: Not Given Documented by: Famotidine (Acid Commodity Trader) 10 mg PO BID PRN PRN Reason: INDIGESTION Ferrous Sulfate (Feosol -) 325 mg PO 0800 [facility] Last Admin: 12/01/19 08:22 Dose: 325 mg Documented by: Folic Acid (Folic Acid -) 1 mg PO DAILY [facility] Last Admin: 12/01/19 09:16 Dose: 1 mg Documented by: Gabapentin (Neurontin -) 600 mg PO HS [facility] Last Admin: 11/30/19 22:55 Dose: 600 mg Documented by: Non-Formulary Medication (Non-Formulary Med) 1 each PO HS [facility] Last Admin: 11/30/19 22:55 Dose: 1 each Documented by: Ondansetron HCl (Zofran Injection) 4 mg IVPUSH Q6H PRN PRN Reason: NAUSEA Last Admin: 11/26/19 11:30 Dose: 4 mg Documented by: Polyethylene Glycol (Miralax (For Daily Use) -) 17 gm PO DAILY PRN PRN Reason: CONSTIPATION Senna (Senna -) 1 tab PO HS [facility] Last Admin: 11/30/19 22:54 Dose: 1 tab Documented by: Silver Sulfadiazine (Silvadene -) 1 applic TP DAILY [facility] Last Admin: 11/29/19 09:48 Dose: Not Given Documented by: Simethicone (Mylicon -) 80 mg PO Q4H PRN PRN Reason: GAS - Objective Vital Signs: Vital Signs Temperature 98 F 12/01/19 08:43 Pulse Rate 75 12/01/19 08:43 Respiratory Rate 18 12/01/19 08:43 Blood Pressure 102/41 L 12/01/19 08:43 O2 Sat by Pulse Oximetry (%) 100 12/01/19 08:43 Eyes: Yes: WNL, Conjunctiva Clear, EOM Intact HENT: Yes: WNL, Atraumatic, Normocephalic Neck: Yes: WNL, Supple, Trachea Midline Cardiovascular: Yes: WNL, Regular Rate and Rhythm Respiratory: Yes: WNL, Regular, CTA Bilaterally Gastrointestinal: Yes: WNL, Normal Bowel Sounds Genitourinary: Yes: WNL Musculoskeletal: Yes: WNL Extremities: Yes: WNL Edema: No Integumentary: Yes: WNL Neurological: Yes: WNL, Alert, Oriented ...Motor Strength: WNL Psychiatric: Yes: WNL Labs: CBC, BMP 11/30/19 06:45 11/29/19 10:40 INR, PTT INR 1.10 (0.83-1.09) H 11/23/19 06:05 Assessment/Plan s/p cervical spine surgery Initial EKG: S. Whitney at 49 bpm. (EKG 11/28/2019: sinus whitney 57 bpm). ECHO: normal LVEF CXR: no acute pathology; stable rt lung nodule Total cholesterol: 157 mg/dL. TSH WNL Telemetry: snus rhythm Plan: Pain management (Tylenol; morphine) Continue physical therapy as tolerated. Cardiac-kirk stable. D/c telemetry.
--- NOTE | 2019-12-01 10:51 | PN ---
Progress Note (short form) - Note Progress Note: Surgery s/p C4, 5, 6 corpectomy with Cage and fusion of C3-C7 with pedicle screws. Posterior lamiectomy decompression of C2-thru T7 with pedicle screws. Pt states she is feeling much better, pt passed POV yesterday and voiding well. She is tolerating her diet and denies any CP, SOB, N/V, Fever or chills. Pt has been accepted to [facility] awaiting insurance. Last Vital Signs Temp Pulse Resp BP Pulse Ox 98 F 75 18 102/41 L 100 12/01/19 08:43 12/01/19 08:43 12/01/19 08:43 12/01/19 08:43 12/01/19 08:43 CBC, BMP 11/30/19 06:45 11/29/19 10:40 PE: Gen: A&O x3 Resp: breathing comfortably Neck: incisions clean with no erythema or discharge, drain in place with serosanguinous drainage. Ext: numbness improving, no weakness. Problem List - Problems (1) Cervical stenosis of spinal canal Assessment/Plan: Plan -drain removed at bedside without incident. -pt cleared for discharge from surgery standpoint. -pt should follow up with Dr. Massey in 2 weeks for postop Pt discussed with Dr. Massey who agrees with plan Code(s): M48.02 - SPINAL STENOSIS, CERVICAL REGION
--- NOTE | 2019-12-01 11:40 | EKG ---
Test Reason : Blood Pressure : / mmHG Vent. Rate : 067 BPM Atrial Rate : 067 BPM P-R Int : 146 ms QRS Dur : 090 ms QT Int : 426 ms P-R-T Axes : 044 -15 045 degrees QTc Int : 450 ms NORMAL SINUS RHYTHM NONSPECIFIC T WAVE ABNORMALITY ABNORMAL ECG WHEN COMPARED WITH ECG OF 25-NOV-2019 09:16, VENT. RATE HAS INCREASED BY 24 BPM T WAVE INVERSION NOW EVIDENT IN ANTERIOR LEADS Confirmed by SAUNDRA RUASCH MD ([id number]) on 12/01/2019 11:40:04 AM Referred By: Confirmed By:SAUNDRA RAUSCH MD
[2019-12-01] MEDS ORDERED: oxyCODONE HCL 5 MG TABLET PO ONE (14:05)
--- NOTE | 2019-12-01 14:05 | PN ---
Teaching Attending Note Name of Resident: Michael Lizarraga ATTENDING PHYSICIAN STATEMENT I saw and evaluated the patient. I reviewed the resident's note and discussed the case with the resident. I agree with the resident's findings and plan as documented. SUBJECTIVE: Patient reports pain and numbness is significantly improved. Hemoglobin stable. Patient is medically and surgically cleared to discharge. Will be sent to [facility] at 4 PM today OBJECTIVE Last Vital Signs Temp Pulse Resp BP Pulse Ox 98 F 75 18 102/41 L 100 12/01/19 08:43 12/01/19 08:43 12/01/19 08:43 12/01/19 08:43 12/01/19 08:43 PE: Per resident note Labs/Imaging: reviewed ASSESSMENT/PLAN 59-year-old female with history of hyperlipidemia, spinal stenosis presents with worsening paresthesias of the right arm and paresthesias in the lower extremities. 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 Patient underwent C4, 5, 6 corpectomy with cage and fusion of C3-C7 with pedicle screws, as well as posterior laminectomy decompression of C2-C7. Course was complicated by postoperative anemia which was corrected with 2 units of PRBCs. Patient is medically cleared for discharge to acute rehab on her home medications
--- NOTE | 2019-12-01 17:45 | DS ---
"Physical Exam: SUBJECTIVE: Patient seen and examined OBJECTIVE: Vital Signs Period Temp Pulse Resp BP Sys/Mandujano Pulse Ox Last 24 Hr 98 F-99.9 F 52-75 18-18 102-128/41-78 95-100 PHYSICAL EXAM GENERAL: The patient is awake, alert, and fully oriented, in no acute distress. HEAD: Normal with no signs of trauma. EYES: PERRL, extraocular movements intact, sclera anicteric, conjunctiva clear. ENT: Ears normal, nares patent, oropharynx clear without exudates, moist mucous membranes. NECK: Trachea midline, full range of motion, supple. LUNGS: Breath sounds equal, clear to auscultation bilaterally, no wheezes, no crackles, no accessory muscle use. HEART: Regular rate and rhythm, S1, S2 without murmur, rub or gallop. ABDOMEN: Soft, nontender, nondistended, normoactive bowel sounds, no guarding, no rebound, no hepatosplenomegaly, no masses. EXTREMITIES: 2+ pulses, warm, well-perfused, no edema. NEUROLOGICAL: Cranial nerves II through XII grossly intact. Normal speech, gait not observed. PSYCH: Normal mood, normal affect. SKIN: Warm, dry, normal turgor, no rashes or lesions noted. LABS Laboratory Results - last 24 hr 11/28/19 11:55 Blood Type B POSITIVE Antibody Screen Negative Crossmatch See Detail HOSPITAL COURSE: Date of Admission:11/22/19 Date of Discharge: 12/01/19 Discharge Summary Problems reviewed: Yes Reason For Visit: RADICULOPATHY Current Active Problems Cervical stenosis of spinal canal (Acute) Condition: Stable - Instructions Diet, Activity, Other Instructions: You came in for right arm weakness. You had surgery by a neurosurgeon to fuse your spine in your neck. You were seen by a bag hanger before and after your procedure. While imaging your back we noted that you have a stable Right lung nodule, please follow up with your PCP about this finding. While you had your procedure you had some blood loss so we transfused you with blood (2 units)and observed you on telemetry. You were seen by Physical Therapy and felt to benefit from rehab to get stronger. Please STOP taking Aspirin until your surgeon states it is ok to resume. Please take Colace 100mg ONCE a day while taking Oxycodone to help avoid constipation. Your oxycodone is prescribed by your Neurosurgeon. Please continue taking your home medications as prescribed. Please follow up with your PCP within 1 week. Please follow up with your Neurosurgeon as detailed below. Post Operative Instructions Physical Activity Resume your normal everyday activity as tolerated. No heavy lifting or exercise until seen by your surgeon. You may walk unlimited amounts and climb stairs. You may resume driving the car when you feel safe and comfortable behind the wheel and you are no longer wearing your brace. Do not operate a vehicle while taking narcotic medication. Brace If you had neck surgery, wear surgical collar 23 hr/day. Remove to shower only. Wound Care Keep your incision clean, dry and covered at all times. Apply an occlusive dressing (Saran wrap or Tegaderm) when showering to avoid getting your incision wet. Do not submerge incision or apply ointments or creams. The jatin will be removed in the office in 10-14 days post-op. Diet There are no dietary restrictions. Eat healthy, high-fiber foods. Drink 6-8 glasses of liquid each day. This will assist in keeping your bowels regular. Pain Management You may take Tylenol or acetaminophen. Any pain prescription medication ordered should be taken as prescribed for moderate to severe pain. Avoid any ibuprofen (Motrin, Advil, Aleve, Toradol, etc) for 3 months unless otherwise discussed with your surgeon. Call Dr Pruitt for any of the following: Severe pain not relieved by medication Fever of 101 or higher Excessive bleeding or drainage on dressing Inability to urinate Any chest pain or shortness of breath, seek Emergency Care. Call the office to confirm a post-operative appointment for 2-3 weeks post-op Cortez Massey MD [facility] [address] [place] [address] This report was requested by: Eri Rice | Reference #: [id number] Referrals: Cortez Massey MD, [facility] [Staff Physician] - 1 Week Jose Rafael Meade [Primary Care Provider] - 1 Week Disposition: [facility] - Home Medications Comprehensive Discharge Medication List: Ambulatory Orders Aspirin 81 mg PO DAILY 11/23/19 Gabapentin 600 mg PO HS 11/23/19 Ibuprofen 800 mg PO PRN PRN 11/23/19 Simvastatin 40 mg PO HS 11/23/19 Docusate Sodium [Colace -] 100 mg PO DAILY #30 capsule 12/01/19 - Discharge Referral Referred to [facility] No ATTENDING PHYSICIAN STATEMENT I saw and evaluated the patient. I reviewed the resident's note and discussed the case with the resident. I agree with the resident's findings and plan as documented. SUBJECTIVE: OBJECTIVE: ASSESSMENT AND PLAN:"
== END 2019-12-01 18:08 | DRG 454 ==
LOC: JER 18:33 → JERBED 23:23 → J8W 11-23 15:59 → J4W 11-25 21:08
PROVIDERS: ADMIT Hospitalist; ATTEND Internal Medicine
PROC: 0RG10A0 Fusion of Cervical Vertebral Joint with Interbody Fusion Device, Anterior Approach, Anterior Column, Open Approach (ICD-10-PCS; principal; 2019-11-22)
PROC: 0RG2071 Fusion of 2 or more Cervical Vertebral Joints with Autologous Tissue Substitute, Posterior Approach, Posterior Column, Open Approach (ICD-10-PCS; 2019-11-22)
PROC: 0RG2070 Fusion of 2 or more Cervical Vertebral Joints with Autologous Tissue Substitute, Anterior Approach, Anterior Column, Open Approach (ICD-10-PCS; 2019-11-22)
PROC: 01N10ZZ Release Cervical Nerve, Open Approach (ICD-10-PCS; 2019-11-22)
PROC: 0RB30ZZ Excision of Cervical Vertebral Disc, Open Approach (ICD-10-PCS; 2019-11-22)
PROC: 0PS304Z Reposition Cervical Vertebra with Internal Fixation Device, Open Approach (ICD-10-PCS; 2019-11-22)
PROC: 0RG4071 Fusion of Cervicothoracic Vertebral Joint with Autologous Tissue Substitute, Posterior Approach, Posterior Column, Open Approach (ICD-10-PCS; 2019-11-22)
PROC: 0PS404Z Reposition Thoracic Vertebra with Internal Fixation Device, Open Approach (ICD-10-PCS; 2019-11-22)
PROC: 0JX70ZB Transfer Back Subcutaneous Tissue and Fascia with Skin and Subcutaneous Tissue, Open Approach (ICD-10-PCS; 2019-11-22)
PROC: B01BZZZ Fluoroscopy of Spinal Cord (ICD-10-PCS; 2019-11-22)
PROC: 4A1004G Monitoring of Central Nervous Electrical Activity, Intraoperative, Open Approach (ICD-10-PCS; 2019-11-22)
PROC: 2W30XYZ Immobilization of Head using Other Device (ICD-10-PCS; 2019-11-22)
PROC: 30233N1 Transfusion of Nonautologous Red Blood Cells into Peripheral Vein, Percutaneous Approach (ICD-10-PCS; 2019-11-25)
DX: M48.02 Spinal stenosis, cervical region (principal); D62 Acute posthemorrhagic anemia; M47.12 Other spondylosis with myelopathy, cervical region; M40.202 Unspecified kyphosis, cervical region; E78.5 Hyperlipidemia, unspecified; R00.1 Bradycardia, unspecified; R07.9 Chest pain, unspecified
CPT/HCPCS: 36415; 36430; 71046-TC-FY; 72125-TC; 72131-TC; 72141-TC; 72148-TC; 76000-TC-FY; 80048; 80053; 80061; 82962; 83036; 83721; 83735; 84100; 84443; 84484; 85025; 85027; 85610; 86850; 86900; 86901; 86922; 93005; 93010; 93306-TC; 94760; 97116-GP; 97162-GP; 99285-25; J1644; P9058; U0003